=== PATIENT | male | born 1950 | race Caucasian/White ===

== ENCOUNTER → 2019-05-24 16:07 | Outpatient (BNVA) | payer MEDICARE, OTHER, SELFPAY | PROVIDERS: Family Provider Nurse Practitioner Family; PCP Nurse Practitioner Family; Visit Provider Emergency Medicine | DX: R39.9 Unspecified symptoms and signs involving the genitourinary system (principal); R33.8 Other retention of urine; R31.9 Hematuria, unspecified | CPT/HCPCS: 81003 ==

== ENCOUNTER 2019-06-02 18:14 | Emergency (ER) | payer MEDICARE, OTHER, SELFPAY ==
[2019-06-02] VITALS (14 sets, daily range): BP systolic 115–159; BP diastolic 67–91; PULSE 82–106; RESP 17–26; TEMP 38.1; O2SAT 92–98; BMI 40.3
--- NOTE | 2019-06-02 18:30 | XR_ITS ---
WS: [id number] CHEST XRAY TECHNIQUE: Portable chest. CLINICAL INFORMATION: dyspnea COMPARISON: None. FINDINGS: Heart: Cardiomegaly. Tortuous aorta. Lungs: Moderate chronic emphysematous changes. No acute pulmonary infiltrates. No focal pneumonia. Bones: Mild thoracic curve convex right. XR/XR chest 1V portable [id number] IMPRESSION: No acute chest findings
--- NOTE | 2019-06-02 18:30 | ED_ITS ---
Entered by Ermelinda Campuzano, acting as scribe for Wale Hernandez DO Documented by User: Wale Hernandez DO 06/02/19 18:44 HPI - SOB/Dyspnea General: Chief Complaint: Shortness of Breath/Dyspnea Stated Complaint: poss blood clot/sent from [facility] Time Seen by Provider: 06/02/19 18:28 Source: patient and family Mode of arrival: ambulatory Limitations: no limitations History of Present Illness: HPI Narrative: 68 yo male presents with increased shortness of breath. pt states he was sent to the ED from [facility] for a possible blood clot. pt denies any other symptoms at this time. MD elicited complaint: shortness of breath Onset (ago): day(s) (today) Timing: constant and progressively worsening Severity: moderate Exacerbating factors: exertion and movement Relieving factors: nothing Associated symptoms: Reports no associated symptoms Treatment prior to arrival: other (pt was sent from urgent care in [facility] for a possible blood clot) Related Data: Home oxygen amount: none Review of Systems General: Reports: 10 or more systems reviewed and unremarkable except in HPI and below Card: Reports: leg pain with exertion Resp: Reports: shortness of breath and wheezing PFSH ED PFSH: Social History Smoking and tobacco status: never smoked Alcohol intake: current Alcohol intake frequency: few times a week Alcohol type: wine Desire information about alcohol rehabilitation?: No History of recent travel: No Current gender identity: Male Physical Exam Const: COMMON NORMALS: no apparent distress, average body habitus, oriented x3, no limitations, healthy appearing, alert and well nourished HENMT: COMMON NORMALS: normocephalic, head/scalp atraumatic, hearing grossly normal bilaterally, external ears normal, EAC's normal, TM's normal bilaterally, external nose normal, nasal mucous membranes and turbinates normal, moist oral mucous membranes, oropharynx normal, dentition normal and gingiva normal HEAD & SCALP: normocephalic and atraumatic NOSE: external nose normal and nasal mucous membranes and turbinates normal EXTERNAL EAR: Yes external ears normal EXTERNAL AUDITORY CANAL: EAC's normal TYMPANIC MEMBRANE: TM's normal bilaterally Eye: COMMON NORMALS: PERRL, EOMs intact bilaterally, conjunctivae normal, no scleral icterus, no papilledema, normal visual holland by confrontation and fundi normal bilaterally CONJUNCTIVA: Yes conjunctivae normal PUPIL: Yes PERRL DIRECT OPHTHALMOSCOPY: Yes no papilledema and Yes fundi normal bilaterally Neck/C-Spine: COMMON NORMALS: full ROM, no lymphadenopathy, supple, no meningeal signs, no JVD, thyroid normal and no carotid bruits THYROID: thyroid normal Chest: COMMONS NORMALS: inspection of chest normal and palpation of chest normal Resp: AUSCULTATION: wheezes and diminished lung sounds Cardio: COMMON NORMALS: no JVD, regular rate, regular rhythm, S1 normal heart sound, S2 normal heart sound, no gallops, no clicks, no murmurs, no rub and peripheral pulses 2+ throughout RATE: regular rate RHYTHM: regular rhythm HEART SOUNDS: S1 normal and S2 normal PERIPHERAL PULSES: pulses 2+ throughout GI: COMMON NORMALS: normal to inspection, nondistended, normoactive bowel sounds, soft to palpation, non-tender, no hepatosplenomegaly, no masses and no bruits PALPATION: Yes soft and Yes no hepatosplenomegaly : COMMON NORMALS: Yes no CVA tenderness BLADDER/KIDNEY EXAM: Yes no CVA tenderness Back/Pelvis: COMMON NORMALS: no CVA tenderness, thoracic and lumbar spine normal to inspection, no thoracic nor lumbar tenderness, thoraco-lumbar ROM normal and straight leg raise negative bilaterally Extremity: COMMON NORMALS: normal to inspection, full ROM, normal capillary refill, no joint enlargement, no clubbing, cyanosis or edema, no calf tenderness and no pedal edema Neuro: COMMON NORMALS: oriented x3 SENSORIUM/ORIENTATION: Yes alert MENINGEAL SIGNS: Yes no meningeal signs Skin: COMMON NORMALS: no rashes or lesions noted, no wounds, skin turgor normal, no jaundice, no petechiae and no mottling GENERAL SKIN EXAM: no rashes or lesions noted and turgor normal Course Vital Signs: Vital signs: Vital Signs Temperature 100.1 F H 06/03/19 02:27 Pulse Rate 104 H 06/03/19 02:27 Respiratory Rate 28 H 06/03/19 02:27 Blood Pressure 168/87 06/03/19 02:27 Pulse Oximetry 94 06/03/19 02:27 MDM - SOB/Dyspnea Lab Data: Labs: Lab Results 0206/02/19 06/02/19 Range/Units 18:30 18:30 18:30 WBC 19.7 H (4.0-10.0) 10^3/ uL RBC 4.38 (4.1-5.3) 10^6/u L Hgb 13.1 (11.7-16.6) g/dL Hct 39.0 L (42.0-52.0) % MCV 89.0 (80-94) fL MCH 29.9 (28.0-34.0) pg MCHC 33.6 (30.0-36.0) g/dL RDW 13.5 (12.1-15.1) % Plt Count 262 (130-400) 10^3/c mm MPV 9.6 (7.4-10.4) fL Neut % (Auto) 83.3 % Lymph % (Auto) 7.9 % Swisher % (Auto) 7.6 % Eos % (Auto) 0.2 % Baso % (Auto) 0.2 % Neut # (Auto) 16.4 H (1.8-7.7) 10^3/u L Lymph # (Auto) 1.6 (0.8-4.8) 10^3/u L Swisher # (Auto) 1.5 H (0.2-0.9) 10^3/u L Eos # (Auto) 0.0 (0.0-0.8) 10^3/u L Baso # (Auto) 0.0 (0.0-0.1) 10^3/u L Nucleated RBC % (a uto) 0 % Nucleated RBCs # 0.0 /100WBC Specimen Type Sample Site ABG pH (7.35-7.45) ABG pCO2 (35-45) mmHg ABG pO2 (80.0-100.0) mmH g ABG HCO3 (22-26) mmol/L ABG Base Excess (-2.0-2.0) mmol/ L Lex Test Hematocrit (42-52) % Hgb O2 Saturation (95-100) % Carboxyhemoglobin (0.4-20.1) %THgb Methemoglobin (0.4-1.5) % Total Hemoglobin (14-18) g/dL O2 Delivery Device FiO2 % Spray I Painter ID Sodium 134 L (136-145) mmol/L Potassium 3.2 L (3.5-5.1) mmol/L Chloride 97 L (98-107) mmol/L Carbon Dioxide 22 (22-29) mmol/L Anion Gap 18.2 (5-19) BUN 28 H (8-23) mg/dL Creatinine 1.5 H (0.7-1.2) mg/dL GFR Calculation 46.5 L (90-130) mL/min Glucose 135 H (65-115) mg/dL Lactic Acid (0.5-2.2) mmol/L Calcium 9.0 (8.5-10.5) mg/dL Magnesium (1.7-2.3) mg/dL Total Bilirubin 0.8 (0.15-1.2) mg/dL AST 33 (0-40) U/L ALT 43 H (0-41) U/L Alkaline Phosphata se 59 (40-130) IU/L Troponin I 6 Hour (0-15) ng/mL Troponin I Hi Sens Del (0-12) ng/L Troponin T Baselin e 21 H (0-15) ng/mL Troponin T 120 Min [place] (0-15) ng/mL Delta Troponin T (0-10) ABS# NT-Pro-B Natriuret Pep 524 H (0-125) pg/mL Total Protein 7.0 (6.6-8.7) g/dL Albumin 3.3 L (3.5-5.2) g/dL Globulin 3.7 (1.3-4.6) g/dL Urine Color (Yellow) Urine Appearance (CLEAR) Urine pH (5-7) Ur Specific Gravit y (1.005-1.030) Urine Protein (Negative) Urine Glucose (UA) (Normal) Urine Ketones (Negative) Urine Blood (Negative) Urine Nitrate (Negative) Urine Bilirubin (NEGATIVE) Urine Urobilinogen (Negative) mg/dL Ur Leukocyte Tania ase (Negative) Urine RBC (0-2) /hpf Urine WBC (0-5) /hpf Ur Squamous Epith Cells (0-5) Amorphous Sediment Urine Bacteria (NONE) Urine Mucus Influenza Type A A g (Negative) POC Influenza B Ag (Negative) 06/02/19 06/02/19 06/02/19 Range/Units 18:30 18:30 18:30 WBC (4.0-10.0) 10^3/ uL RBC (4.1-5.3) 10^6/u L Hgb (11.7-16.6) g/dL Hct (42.0-52.0) % MCV (80-94) fL MCH (28.0-34.0) pg MCHC (30.0-36.0) g/dL RDW (12.1-15.1) % Plt Count (130-400) 10^3/c mm MPV (7.4-10.4) fL Neut % (Auto) % Lymph % (Auto) % Swisher % (Auto) % Eos % (Auto) % Baso % (Auto) % Neut # (Auto) (1.8-7.7) 10^3/u L Lymph # (Auto) (0.8-4.8) 10^3/u L Swisher # (Auto) (0.2-0.9) 10^3/u L Eos # (Auto) (0.0-0.8) 10^3/u L Baso # (Auto) (0.0-0.1) 10^3/u L Nucleated RBC % (a uto) % Nucleated RBCs # /100WBC Specimen Type Sample Site ABG pH (7.35-7.45) ABG pCO2 (35-45) mmHg ABG pO2 (80.0-100.0) mmH g ABG HCO3 (22-26) mmol/L ABG Base Excess (-2.0-2.0) mmol/ L Lex Test Hematocrit (42-52) % Hgb O2 Saturation (95-100) % Carboxyhemoglobin (0.4-20.1) %THgb Methemoglobin (0.4-1.5) % Total Hemoglobin (14-18) g/dL O2 Delivery Device FiO2 % Spray I Painter ID Sodium (136-145) mmol/L Potassium (3.5-5.1) mmol/L Chloride (98-107) mmol/L Carbon Dioxide (22-29) mmol/L Anion Gap (5-19) BUN (8-23) mg/dL Creatinine (0.7-1.2) mg/dL GFR Calculation (90-130) mL/min Glucose (65-115) mg/dL Lactic Acid 1.2 (0.5-2.2) mmol/L Calcium (8.5-10.5) mg/dL Magnesium 1.9 (1.7-2.3) mg/dL Total Bilirubin (0.15-1.2) mg/dL AST (0-40) U/L ALT (0-41) U/L Alkaline Phosphata se (40-130) IU/L Troponin I 6 Hour (0-15) ng/mL Troponin I Hi Sens Del (0-12) ng/L Troponin T Baselin e (0-15) ng/mL Troponin T 120 Min [place] (0-15) ng/mL Delta Troponin T (0-10) ABS# NT-Pro-B Natriuret Pep (0-125) pg/mL Total Protein (6.6-8.7) g/dL Albumin (3.5-5.2) g/dL Globulin (1.3-4.6) g/dL Urine Color Haley (Yellow) Urine Appearance Clear (CLEAR) Urine pH 5 (5-7) Ur Specific Gravit y 1.020 (1.005-1.030) Urine Protein 2+ H (Negative) Urine Glucose (UA) Norm (Normal) Urine Ketones Negative (Negative) Urine Blood 3+ H (Negative) Urine Nitrate Negative (Negative) Urine Bilirubin Neg (NEGATIVE) Urine Urobilinogen Norm (Negative) mg/dL Ur Leukocyte Tania ase Trace H (Negative) Urine RBC 5-10 H (0-2) /hpf Urine WBC 15-25 H (0-5) /hpf Ur Squamous Epith Cells None (0-5) Amorphous Sediment 2+ Urine Bacteria 1+ H (NONE) Urine Mucus Trace Influenza Type A A g (Negative) POC Influenza B Ag (Negative) 06/02/19 06/02/19 06/02/19 Range/Units 18:30 18:46 19:45 WBC (4.0-10.0) 10^3/ uL RBC (4.1-5.3) 10^6/u L Hgb (11.7-16.6) g/dL Hct (42.0-52.0) % MCV (80-94) fL MCH (28.0-34.0) pg MCHC (30.0-36.0) g/dL RDW (12.1-15.1) % Plt Count (130-400) 10^3/c mm MPV (7.4-10.4) fL Neut % (Auto) % Lymph % (Auto) % Swisher % (Auto) % Eos % (Auto) % Baso % (Auto) % Neut # (Auto) (1.8-7.7) 10^3/u L Lymph # (Auto) (0.8-4.8) 10^3/u L Swisher # (Auto) (0.2-0.9) 10^3/u L Eos # (Auto) (0.0-0.8) 10^3/u L Baso # (Auto) (0.0-0.1) 10^3/u L Nucleated RBC % (a uto) % Nucleated RBCs # /100WBC Specimen Type Arterial Sample Site Radial, right ABG pH 7.52 H (7.35-7.45) ABG pCO2 28.7 L (35-45) mmHg ABG pO2 63.6 L (80.0-100.0) mmH g ABG HCO3 23.6 (22-26) mmol/L ABG Base Excess 2.0 (-2.0-2.0) mmol/ L Lex Test Pos Hematocrit 48.4 (42-52) % Hgb O2 Saturation 91.9 L (95-100) % Carboxyhemoglobin 0.3 L (0.4-20.1) %THgb Methemoglobin 0.7 (0.4-1.5) % Total Hemoglobin 15.8 (14-18) g/dL O2 Delivery Device None FiO2 21.0 % Spray I Painter ID [email or web address] Sodium (136-145) mmol/L Potassium (3.5-5.1) mmol/L Chloride (98-107) mmol/L Carbon Dioxide (22-29) mmol/L Anion Gap (5-19) BUN (8-23) mg/dL Creatinine (0.7-1.2) mg/dL GFR Calculation (90-130) mL/min Glucose (65-115) mg/dL Lactic Acid (0.5-2.2) mmol/L Calcium (8.5-10.5) mg/dL Magnesium (1.7-2.3) mg/dL Total Bilirubin (0.15-1.2) mg/dL AST (0-40) U/L ALT (0-41) U/L Alkaline Phosphata se (40-130) IU/L Troponin I 6 Hour (0-15) ng/mL Troponin I Hi Sens Del (0-12) ng/L Troponin T Baselin e (0-15) ng/mL Troponin T 120 Min [place] (0-15) ng/mL Delta Troponin T (0-10) ABS# NT-Pro-B Natriuret Pep 555 H (0-125) pg/mL Total Protein (6.6-8.7) g/dL Albumin (3.5-5.2) g/dL Globulin (1.3-4.6) g/dL Urine Color (Yellow) Urine Appearance (CLEAR) Urine pH (5-7) Ur Specific Gravit y (1.005-1.030) Urine Protein (Negative) Urine Glucose (UA) (Normal) Urine Ketones (Negative) Urine Blood (Negative) Urine Nitrate (Negative) Urine Bilirubin (NEGATIVE) Urine Urobilinogen (Negative) mg/dL Ur Leukocyte Tania ase (Negative) Urine RBC (0-2) /hpf Urine WBC (0-5) /hpf Ur Squamous Epith Cells (0-5) Amorphous Sediment Urine Bacteria (NONE) Urine Mucus Influenza Type A A g Negative (Negative) POC Influenza B Ag Negative (Negative) 06/02/19 06/03/19 Range/Units 20:56 00:14 WBC (4.0-10.0) 10^3/ uL RBC (4.1-5.3) 10^6/u L Hgb (11.7-16.6) g/dL Hct (42.0-52.0) % MCV (80-94) fL MCH (28.0-34.0) pg MCHC (30.0-36.0) g/dL RDW (12.1-15.1) % Plt Count (130-400) 10^3/c mm MPV (7.4-10.4) fL Neut % (Auto) % Lymph % (Auto) % Swisher % (Auto) % Eos % (Auto) % Baso % (Auto) % Neut # (Auto) (1.8-7.7) 10^3/u L Lymph # (Auto) (0.8-4.8) 10^3/u L Swisher # (Auto) (0.2-0.9) 10^3/u L Eos # (Auto) (0.0-0.8) 10^3/u L Baso # (Auto) (0.0-0.1) 10^3/u L Nucleated RBC % (a uto) % Nucleated RBCs # /100WBC Specimen Type Sample Site ABG pH (7.35-7.45) ABG pCO2 (35-45) mmHg ABG pO2 (80.0-100.0) mmH g ABG HCO3 (22-26) mmol/L ABG Base Excess (-2.0-2.0) mmol/ L Elx Test Hematocrit (42-52) % Hgb O2 Saturation (95-100) % Carboxyhemoglobin (0.4-20.1) %THgb Methemoglobin (0.4-1.5) % Total Hemoglobin (14-18) g/dL O2 Delivery Device FiO2 % Spray I Painter ID Sodium (136-145) mmol/L Potassium (3.5-5.1) mmol/L Chloride (98-107) mmol/L Carbon Dioxide (22-29) mmol/L Anion Gap (5-19) BUN (8-23) mg/dL Creatinine (0.7-1.2) mg/dL GFR Calculation (90-130) mL/min Glucose (65-115) mg/dL Lactic Acid (0.5-2.2) mmol/L Calcium (8.5-10.5) mg/dL Magnesium (1.7-2.3) mg/dL Total Bilirubin (0.15-1.2) mg/dL AST (0-40) U/L ALT (0-41) U/L Alkaline Phosphata se (40-130) IU/L Troponin I 6 Hour 17.17 H (0-15) ng/mL Troponin I Hi Sens Del -3.83 L (0-12) ng/L Troponin T Baselin e (0-15) ng/mL Troponin T 120 Min [place] 20.03 H (0-15) ng/mL Delta Troponin T -0.97 L (0-10) ABS# NT-Pro-B Natriuret Pep (0-125) pg/mL Total Protein (6.6-8.7) g/dL Albumin (3.5-5.2) g/dL Globulin (1.3-4.6) g/dL Urine Color (Yellow) Urine Appearance (CLEAR) Urine pH (5-7) Ur Specific Gravit y (1.005-1.030) Urine Protein (Negative) Urine Glucose (UA) (Normal) Urine Ketones (Negative) Urine Blood (Negative) Urine Nitrate (Negative) Urine Bilirubin (NEGATIVE) Urine Urobilinogen (Negative) mg/dL Ur Leukocyte Tania ase (Negative) Urine RBC (0-2) /hpf Urine WBC (0-5) /hpf Ur Squamous Epith Cells (0-5) Amorphous Sediment Urine Bacteria (NONE) Urine Mucus Influenza Type A A g (Negative) POC Influenza B Ag (Negative) Discharge Plan Discharge Patient Disposition: Xfer Short-Term Hosp Clinical Impression: Acute pyelonephritis, Postprocedural retroperitoneal abscess Pulmonary emboli Qualifiers: Pulmonary embolism type: unspecified Chronicity: acute Acute cor pulmonale presence: without acute cor pulmonale Qualified Code(s): I26.99 - Other pulmonary embolism without acute cor pulmonale Condition: Stable Referrals: Luke Chamorro FNP [Family Provider] - Discharge Date/Time: 06/03/19 02:29 Sign Out Sign Out Data: Patient Sign Out occurred on 06/02/19 at 19:17. Patient's care was discussed, and care was transferred from to Carmel Damon. Coding Level of Care Code ED Title Officer for Chg Fwd Exam Comprehensive Documented by User: Carmel Damon 06/03/19 02:32 HPI - SOB/Dyspnea General: Chief Complaint: Shortness of Breath/Dyspnea Stated Complaint: poss blood clot/sent from [facility] Time Seen by Provider: 06/02/19 18:28 PFSH ED PFSH: Social History Smoking and tobacco status: never smoked Alcohol intake: current Alcohol intake frequency: few times a week Alcohol type: wine Desire information about alcohol rehabilitation?: No History of recent travel: No Current gender identity: Male Course Vital Signs: Vital signs: Vital Signs Temperature 100.1 F H 06/03/19 02:27 Pulse Rate 104 H 06/03/19 02:27 Respiratory Rate 28 H 06/03/19 02:27 Blood Pressure 168/87 06/03/19 02:27 Pulse Oximetry 94 06/03/19 02:27 MDM - SOB/Dyspnea MDM Narrative: Medical decision making narrative: 1800 -care assumed by me Dr. Damon from Dr. Segundo at change of shift. Upon my history from patient he states he has been sick with flulike symptoms of shortness of breath, cough, fever and night sweats with chills since May 22. Patient received a cystoscopy and ureteral stent at that time for a kidney stone by Dr. Tyshawn Gaspar out of [facility]. Patient had 5 days of prophylactic antibiotics at the time but went home and stated secondary to the pain he did not want to get up or move or do anything. He was taken off of his Pradaxa secondary to concern of bleeding with a stent in place. Patient states he was very sedentary at home and did not get up to do much. Today he had his stent pulled but then went to his nurse practitioner's office and [place] and they had the concern of a PE so they sent him here to be evaluated. Currently he states he has mild shortness of breath but still feels achy and like he has the flu. Transfer -patient CT scan shows multiple bilateral PEs but there is no clinical or laboratory evidence of right heart strain. The patient is not hypoxic and on room air oxygen he ranges 92 to 95%. He is not tachycardic, and he is not hypotensive. His BNP is only minutely elevated and his troponins are not trending up. I placed him on heparin as his CT scan also shows a pyelonephritis and possible ureteral abscess. This will likely need intervened on and heparin will be easy to stop and then restart after the procedure. I reviewed the case in full with Dr. Hernandez and Robert but they agree this will likely need a interventional radiologist to drain this and ours do not perform this procedure here. I then contacted [facility] in [place] and they are on full diversion at this time. I contacted [facility] and discussed the case with Dr. Vargas and he will accept the patient in transfer. Lab Data: Labs: Lab Results 06/02/19 06/02/19 06/02/19 Range/Units 18:30 18:30 18:30 WBC 19.7 H (4.0-10.0) 10^3/ uL RBC 4.38 (4.1-5.3) 10^6/u L Hgb 13.1 (11.7-16.6) g/dL Hct 39.0 L (42.0-52.0) % MCV 89.0 (80-94) fL MCH 29.9 (28.0-34.0) pg MCHC 33.6 (30.0-36.0) g/dL RDW 13.5 (12.1-15.1) % Plt Count 262 (130-400) 10^3/c mm MPV 9.6 (7.4-10.4) fL Neut % (Auto) 83.3 % Lymph % (Auto) 7.9 % Swisher % (Auto) 7.6 % Eos % (Auto) 0.2 % Baso % (Auto) 0.2 % Neut # (Auto) 16.4 H (1.8-7.7) 10^3/u L Lymph # (Auto) 1.6 (0.8-4.8) 10^3/u L Swisher # (Auto) 1.5 H (0.2-0.9) 10^3/u L Eos # (Auto) 0.0 (0.0-0.8) 10^3/u L Baso # (Auto) 0.0 (0.0-0.1) 10^3/u L Nucleated RBC % (a uto) 0 % Nucleated RBCs # 0.0 /100WBC Specimen Type Sample Site ABG pH (7.35-7.45) ABG pCO2 (35-45) mmHg ABG pO2 (80.0-100.0) mmH g ABG HCO3 (22-26) mmol/L ABG Base Excess (-2.0-2.0) mmol/ L Lex Test Hematocrit (42-52) % Hgb O2 Saturation (95-100) % Carboxyhemoglobin (0.4-20.1) %THgb Methemoglobin (0.4-1.5) % Total Hemoglobin (14-18) g/dL O2 Delivery Device FiO2 % Spray I Painter ID Sodium 134 L (136-145) mmol/L Potassium 3.2 L (3.5-5.1) mmol/L Chloride 97 L (98-107) mmol/L Carbon Dioxide 22 (22-29) mmol/L Anion Gap 18.2 (5-19) BUN 28 H (8-23) mg/dL Creatinine 1.5 H (0.7-1.2) mg/dL GFR Calculation 46.5 L (90-130) mL/min Glucose 135 H (65-115) mg/dL Lactic Acid (0.5-2.2) mmol/L Calcium 9.0 (8.5-10.5) mg/dL Magnesium (1.7-2.3) mg/dL Total Bilirubin 0.8 (0.15-1.2) mg/dL AST 33 (0-40) U/L ALT 43 H (0-41) U/L Alkaline Phosphata se 59 (40-130) IU/L Troponin I 6 Hour (0-15) ng/mL Troponin I Hi Sens Del (0-12) ng/L Troponin T Baselin e 21 H (0-15) ng/mL Troponin T 120 Min [place] (0-15) ng/mL Delta Troponin T (0-10) ABS# NT-Pro-B Natriuret Pep 524 H (0-125) pg/mL Total Protein 7.0 (6.6-8.7) g/dL Albumin 3.3 L (3.5-5.2) g/dL Globulin 3.7 (1.3-4.6) g/dL Urine Color (Yellow) Urine Appearance (CLEAR) Urine pH (5-7) Ur Specific Gravit y (1.005-1.030) Urine Protein (Negative) Urine Glucose (UA) (Normal) Urine Ketones (Negative) Urine Blood (Negative) Urine Nitrate (Negative) Urine Bilirubin (NEGATIVE) Urine Urobilinogen (Negative) mg/dL Ur Leukocyte Tania ase (Negative) Urine RBC (0-2) /hpf Urine WBC (0-5) /hpf Ur Squamous Epith Cells (0-5) Amorphous Sediment Urine Bacteria (NONE) Urine Mucus Influenza Type A A g (Negative) POC Influenza B Ag (Negative) 06/02/19 06/02/19 06/02/19 Range/Units 18:30 18:30 18:30 WBC (4.0-10.0) 10^3/ uL RBC (4.1-5.3) 10^6/u L Hgb (11.7-16.6) g/dL Hct (42.0-52.0) % MCV (80-94) fL MCH (28.0-34.0) pg MCHC (30.0-36.0) g/dL RDW (12.1-15.1) % Plt Count (130-400) 10^3/c mm MPV (7.4-10.4) fL Neut % (Auto) % Lymph % (Auto) % Swisher % (Auto) % Eos % (Auto) % Baso % (Auto) % Neut # (Auto) (1.8-7.7) 10^3/u L Lymph # (Auto) (0.8-4.8) 10^3/u L Swisher # (Auto) (0.2-0.9) 10^3/u L Eos # (Auto) (0.0-0.8) 10^3/u L Baso # (Auto) (0.0-0.1) 10^3/u L Nucleated RBC % (a uto) % Nucleated RBCs # /100WBC Specimen Type Sample Site ABG pH (7.35-7.45) ABG pCO2 (35-45) mmHg ABG pO2 (80.0-100.0) mmH g ABG HCO3 (22-26) mmol/L ABG Base Excess (-2.0-2.0) mmol/ L Lex Test Hematocrit (42-52) % Hgb O2 Saturation (95-100) % Carboxyhemoglobin (0.4-20.1) %THgb Methemoglobin (0.4-1.5) % Total Hemoglobin (14-18) g/dL O2 Delivery Device FiO2 % Spray I Painter ID Sodium (136-145) mmol/L Potassium (3.5-5.1) mmol/L Chloride (98-107) mmol/L Carbon Dioxide (22-29) mmol/L Anion Gap (5-19) BUN (8-23) mg/dL Creatinine (0.7-1.2) mg/dL GFR Calculation (90-130) mL/min Glucose (65-115) mg/dL Lactic Acid 1.2 (0.5-2.2) mmol/L Calcium (8.5-10.5) mg/dL Magnesium 1.9 (1.7-2.3) mg/dL Total Bilirubin (0.15-1.2) mg/dL AST (0-40) U/L ALT (0-41) U/L Alkaline Phosphata se (40-130) IU/L Troponin I 6 Hour (0-15) ng/mL Troponin I Hi Sens Del (0-12) ng/L Troponin T Baselin e (0-15) ng/mL Troponin T 120 Min [place] (0-15) ng/mL Delta Troponin T (0-10) ABS# NT-Pro-B Natriuret Pep (0-125) pg/mL Total Protein (6.6-8.7) g/dL Albumin (3.5-5.2) g/dL Globulin (1.3-4.6) g/dL Urine Color Haley (Yellow) Urine Appearance Clear (CLEAR) Urine pH 5 (5-7) Ur Specific Gravit y 1.020 (1.005-1.030) Urine Protein 2+ H (Negative) Urine Glucose (UA) Norm (Normal) Urine Ketones Negative (Negative) Urine Blood 3+ H (Negative) Urine Nitrate Negative (Negative) Urine Bilirubin Neg (NEGATIVE) Urine Urobilinogen Norm (Negative) mg/dL Ur Leukocyte Tania ase Trace H (Negative) Urine RBC 5-10 H (0-2) /hpf Urine WBC 15-25 H (0-5) /hpf Ur Squamous Epith Cells None (0-5) Amorphous Sediment 2+ Urine Bacteria 1+ H (NONE) Urine Mucus Trace Influenza Type A A g (Negative) POC Influenza B Ag (Negative) 06/02/19 06/02/19 06/02/19 Range/Units 18:30 18:46 19:45 WBC (4.0-10.0) 10^3/ uL RBC (4.1-5.3) 10^6/u L Hgb (11.7-16.6) g/dL Hct (42.0-52.0) % MCV (80-94) fL MCH (28.0-34.0) pg MCHC (30.0-36.0) g/dL RDW (12.1-15.1) % Plt Count (130-400) 10^3/c mm MPV (7.4-10.4) fL Neut % (Auto) % Lymph % (Auto) % Swisher % (Auto) % Eos % (Auto) % Baso % (Auto) % Neut # (Auto) (1.8-7.7) 10^3/u L Lymph # (Auto) (0.8-4.8) 10^3/u L Swisher # (Auto) (0.2-0.9) 10^3/u L Eos # (Auto) (0.0-0.8) 10^3/u L Baso # (Auto) (0.0-0.1) 10^3/u L Nucleated RBC % (a uto) % Nucleated RBCs # /100WBC Specimen Type Arterial Sample Site Radial, right ABG pH 7.52 H (7.35-7.45) ABG pCO2 28.7 L (35-45) mmHg ABG pO2 63.6 L (80.0-100.0) mmH g ABG HCO3 23.6 (22-26) mmol/L ABG Base Excess 2.0 (-2.0-2.0) mmol/ L Lex Test Pos Hematocrit 48.4 (42-52) % Hgb O2 Saturation 91.9 L (95-100) % Carboxyhemoglobin 0.3 L (0.4-20.1) %THgb Methemoglobin 0.7 (0.4-1.5) % Total Hemoglobin 15.8 (14-18) g/dL O2 Delivery Device None FiO2 21.0 % Spray I Painter ID [email or web address] Sodium (136-145) mmol/L Potassium (3.5-5.1) mmol/L Chloride (98-107) mmol/L Carbon Dioxide (22-29) mmol/L Anion Gap (5-19) BUN (8-23) mg/dL Creatinine (0.7-1.2) mg/dL GFR Calculation (90-130) mL/min Glucose (65-115) mg/dL Lactic Acid (0.5-2.2) mmol/L Calcium (8.5-10.5) mg/dL Magnesium (1.7-2.3) mg/dL Total Bilirubin (0.15-1.2) mg/dL AST (0-40) U/L ALT (0-41) U/L Alkaline Phosphata se (40-130) IU/L Troponin I 6 Hour (0-15) ng/mL Troponin I Hi Sens Del (0-12) ng/L Troponin T Baselin e (0-15) ng/mL Troponin T 120 Min [place] (0-15) ng/mL Delta Troponin T (0-10) ABS# NT-Pro-B Natriuret Pep 555 H (0-125) pg/mL Total Protein (6.6-8.7) g/dL Albumin (3.5-5.2) g/dL Globulin (1.3-4.6) g/dL Urine Color (Yellow) Urine Appearance (CLEAR) Urine pH (5-7) Ur Specific Gravit y (1.005-1.030) Urine Protein (Negative) Urine Glucose (UA) (Normal) Urine Ketones (Negative) Urine Blood (Negative) Urine Nitrate (Negative) Urine Bilirubin (NEGATIVE) Urine Urobilinogen (Negative) mg/dL Ur Leukocyte Tania ase (Negative) Urine RBC (0-2) /hpf Urine WBC (0-5) /hpf Ur Squamous Epith Cells (0-5) Amorphous Sediment Urine Bacteria (NONE) Urine Mucus Influenza Type A A g Negative (Negative) POC Influenza B Ag Negative (Negative) 06/02/19 06/03/19 Range/Units 20:56 00:14 WBC (4.0-10.0) 10^3/ uL RBC (4.1-5.3) 10^6/u L Hgb (11.7-16.6) g/dL Hct (42.0-52.0) % MCV (80-94) fL MCH (28.0-34.0) pg MCHC (30.0-36.0) g/dL RDW (12.1-15.1) % Plt Count (130-400) 10^3/c mm MPV (7.4-10.4) fL Neut % (Auto) % Lymph % (Auto) % Swisher % (Auto) % Eos % (Auto) % Baso % (Auto) % Neut # (Auto) (1.8-7.7) 10^3/u L Lymph # (Auto) (0.8-4.8) 10^3/u L Swisher # (Auto) (0.2-0.9) 10^3/u L Eos # (Auto) (0.0-0.8) 10^3/u L Baso # (Auto) (0.0-0.1) 10^3/u L Nucleated RBC % (a uto) % Nucleated RBCs # /100WBC Specimen Type Sample Site ABG pH (7.35-7.45) ABG pCO2 (35-45) mmHg ABG pO2 (80.0-100.0) mmH g ABG HCO3 (22-26) mmol/L ABG Base Excess (-2.0-2.0) mmol/ L Lex Test Hematocrit (42-52) % Hgb O2 Saturation (95-100) % Carboxyhemoglobin (0.4-20.1) %THgb Methemoglobin (0.4-1.5) % Total Hemoglobin (14-18) g/dL O2 Delivery Device FiO2 % Spray I Painter ID Sodium (136-145) mmol/L Potassium (3.5-5.1) mmol/L Chloride (98-107) mmol/L Carbon Dioxide (22-29) mmol/L Anion Gap (5-19) BUN (8-23) mg/dL Creatinine (0.7-1.2) mg/dL GFR Calculation (90-130) mL/min Glucose (65-115) mg/dL Lactic Acid (0.5-2.2) mmol/L Calcium (8.5-10.5) mg/dL Magnesium (1.7-2.3) mg/dL Total Bilirubin (0.15-1.2) mg/dL AST (0-40) U/L ALT (0-41) U/L Alkaline Phosphata se (40-130) IU/L Troponin I 6 Hour 17.17 H (0-15) ng/mL Troponin I Hi Sens Del -3.83 L (0-12) ng/L Troponin T Baselin e (0-15) ng/mL Troponin T 120 Min [place] 20.03 H (0-15) ng/mL Delta Troponin T -0.97 L (0-10) ABS# NT-Pro-B Natriuret Pep (0-125) pg/mL Total Protein (6.6-8.7) g/dL Albumin (3.5-5.2) g/dL Globulin (1.3-4.6) g/dL Urine Color (Yellow) Urine Appearance (CLEAR) Urine pH (5-7) Ur Specific Gravit y (1.005-1.030) Urine Protein (Negative) Urine Glucose (UA) (Normal) Urine Ketones (Negative) Urine Blood (Negative) Urine Nitrate (Negative) Urine Bilirubin (NEGATIVE) Urine Urobilinogen (Negative) mg/dL Ur Leukocyte Tania ase (Negative) Urine RBC (0-2) /hpf Urine WBC (0-5) /hpf Ur Squamous Epith Cells (0-5) Amorphous Sediment Urine Bacteria (NONE) Urine Mucus Influenza Type A A g (Negative) POC Influenza B Ag (Negative) Imaging Data^: Other Imaging: Radiologist's impression: [place] [address] CT Scan Report Signed with Addenda Patient: Sanket Haji Unit #: [id number] : 1950 Age/Sex: 68 / M ADM Date: 06/02/19 Loc: ER Room/Bed: Attending Dr: Ordering Provider/Ordering MD: Carmel Damon DO Date of Service: 06/02/19 Procedure(s): CT angio chest w abd pel w con Accession Number(s): [id number] Report Number: [id number]/CT angio chest w abd pel w con These findings were discussed with Dr Damon by Dr. Rios at 9:42 p.m. central time. Radiation Dose CTDIVOL = (mGy): DLP = 2211.1 2211.1 (mGy-cm) Addendum Dictated By: Mandeep Rios Addendum Signed By: Mandeep Rios Signed Date/Time: 06/02/19 2 145 Addendum Cosigned By: PROCEDURE INFORMATION: Exam: CT Angiography Chest With Contrast Exam date and time: 06/02/2019 8:19 PM Age: 68 years old Clinical indication: Abdominal tenderness; Shortness of breath and other: Elevated d-dimer; Prior surgery; Surgery type: Left shoulder; Additional info: Sob/positive d-dimer TECHNIQUE: Imaging protocol: Computed tomographic angiography of the chest with intravenous contrast. 3D rendering: MIP and/or 3D reconstructed images were created by the technologist. Total DLP: 2211.1 mGy-cm Radiation optimization: All CT scans at this facility use at least one of these dose optimization techniques: automated exposure control; mA and/or kV adjustment per patient size (includes targeted exams where dose is matched to clinical indication); or iterative reconstruction. Contrast material: VISI 320; Contrast volume: 95 ml; Contrast route: IV; COMPARISON: CR XR chest 1V portable [id number] 06/02/2019 6:35 PM FINDINGS: Pulmonary arteries: There are multiple filling defects within the pulmonary artery branches of both lungs, right greater than left. Aorta: Unremarkable. No aortic aneurysm. No aortic dissection. Lungs: Mild subpleural atelectasis. Calcified granuloma in the left lower lobe. Pleural space: Unremarkable. No pneumothorax. No pleural effusion. Heart: No evidence for right heart strain. Lymph nodes: Unremarkable. No enlarged lymph nodes. Bones/joints: Old left rib fractures. Mild scoliosis. Soft tissues: Unremarkable. IMPRESSION: 1. Multiple pulmonary emboli within both lungs, right greater than left. PROCEDURE INFORMATION: Exam: CT Abdomen And Pelvis With Contrast Exam date and time: 06/02/2019 8:19 PM Age: 68 years old Clinical indication: Abdominal tenderness; Shortness of breath and other: Elevated d-dimer; Prior surgery; Surgery type: Left shoulder; Additional info: Sob/positive d-dimer TECHNIQUE: Imaging protocol: Computed tomography of the abdomen and pelvis with intravenous contrast. Total DLP: 2211.1 mGy-cm Radiation optimization: All CT scans at this facility use at least one of these dose optimization techniques: automated exposure control; mA and/or kV adjustment per patient size (includes targeted exams where dose is matched to clinical indication); or iterative reconstruction. Contrast material: VISI 320; Contrast volume: 95 ml; Contrast route: IV; COMPARISON: CR XR chest 1V portable [id number] 06/02/2019 6:35 PM FINDINGS: Liver: Normal. No mass. Gallbladder and bile ducts: Normal. No calcified stones. No ductal dilation. Pancreas: Normal. No ductal dilation. Spleen: Normal. No splenomegaly. Adrenals: Normal. No mass. Kidneys and ureters: Multiple bilateral renal cysts, the largest on the right measuring 9.1 cm. Mild left perinephric and periureteral stranding. Focal fluid collection with peripheral enhancement adjacent to the mid left ureter measuring 3.3 x 1.3 x 4.7 cm. No ureteral calculus. Mild left hydronephrosis. Nonobstructing 2-3 mm bilateral renal calculi. Stomach and bowel: Unremarkable. No obstruction. No mucosal thickening. Appendix: No evidence of appendicitis. Intraperitoneal space: Unremarkable. No free air. No significant fluid collection. Vasculature: Unremarkable. No abdominal aortic aneurysm. Lymph nodes: Unremarkable. No enlarged lymph nodes. Bladder: Unremarkable as visualized. Reproductive: Mildly enlarged prostate measuring 5.3 cm with peripheral calcifications and a central 1.5 cm low-density. Bones/joints: Degenerative lumbar spine. No compression fracture. Soft tissues: Unremarkable. CT/CT angio chest w abd pel w con IMPRESSION: 1. Left perinephric stranding and mild left hydronephrosis, without a visible ureteral calculus. This is suspicious for pyelonephritis. 2. 4.7 cm peripherally enhancing fluid collection adjacent to the mid left ureter is suspicious for a small retroperitoneal abscess. 3. Bilateral nonobstructing renal calculi. 4. Bilateral renal cysts. 4. Enlarged prostate with a 1.5 cm hypodense lesion centrally. An underlying neoplasm is not excluded. Radiation Dose CTDIVOL = (mGy): DLP = 2211.1 2211.1 (mGy-cm) Dictated By: Mandeep Rios Signed By: Mandeep Rios Signed Date/Time: 06/02/192125 DD/ 23 US: Radiologist's impression: Bilateral venous lower extremity venous Doppler, technologist interpretation -negative for DVT EKG Data^: EKG 1: Attestation: I personally reviewed and interpreted this EKG as follows: EKG Interpretation Date: 06/02/19 EKG interpretation time: 18:36 Interpretation: Sinus tachycardia with a ventricular rate of 109 beats a minute, right bundle branch block, left anterior fascicular block, nonspecific ST and T wave changes. EKG 2: Attestation: I personally reviewed and interpreted this EKG as follows: EKG Interpretation Date: 06/02/19 EKG interpretation time: 20:06 Interpretation: Normal sinus rhythm at 98 beats a minute. Left axis deviation, right bundle branch block, nonspecific ST-T wave changes, no blocks, normal intervals. Discharge Plan Discharge Patient Disposition: Xfer Short-Term Hosp Clinical Impression: Acute pyelonephritis, Postprocedural retroperitoneal abscess Pulmonary emboli Qualifiers: Pulmonary embolism type: unspecified Chronicity: acute Acute cor pulmonale presence: without acute cor pulmonale Qualified Code(s): I26.99 - Other pulmonary embolism without acute cor pulmonale Condition: Stable Referrals: Luke Chamorro FNP [Family Provider] - Discharge Date/Time: 06/03/19 02:29 Sign Out Sign Out Data: Patient Sign Out occurred on 06/02/19 at 19:17. Patient's care was discussed, and care was transferred from to Carmel Damon. Coding Level of Care Code ED Title Officer for Raeg Fwd Exam Comprehensive
--- NOTE | 2019-06-02 18:31 | ECG_ITS ---
Measurements Intervals [place] Rate: 109 P: 78 AK: 149 QRS: 1 QRSD: 144 T: 31 QT: 309 QTc: 417 SINUS TACHYCARDIA WITH OCCASIONAL SUPRAVENTRICULAR PREMATURE COMPLEXES INTRAVENTRICULAR CONDUCTION DELAY [130+ ms QRS DURATION] No previous ECG available for comparison Electronically Signed On 06-02-2019 19:47:10 BAKER PIE by Olge Alba M.D. [id number]
[2019-06-02 18:49] LABS: Basophils % 0.2 %; Eosinophils % 0.2 %; Hemoglobin 13.1 g/dL (11.7-16.6); Lymphocytes # 1.6 10^3/uL (0.8-4.8); Lymphocytes % 7.9 %; Mean Corpuscular HGB Conc 33.6 g/dL (30.0-36.0); Mean Corpuscular Hemoglobin 29.9 pg (28.0-34.0); Mean Platelet Volume 9.6 fL (7.4-10.4); Monocytes # 1.5 10^3/uL (0.2-0.9); Monocytes % 7.6 %; Neutrophils # 16.4 10^3/uL (1.8-7.7); Neutrophils % 83.3 %; Nucleated Red Blood Cells % 0 %; Platelet Count 262 10^3/cmm (130-400); Red Blood Count 4.38 10^6/uL (4.1-5.3); Red Cell Distribution Width 13.5 % (12.1-15.1); White Blood Count 19.7 10^3/uL (4.0-10.0)
--- NOTE | 2019-06-02 18:56 | USCV_ITS ---
Adithya Sanket Age: 68 Gender: M : 1950 Exam Date: 06/02/2019 19:12 Ordering Phys: Wale Hernandez DO Technologist: Adrianne Gant Exam Location: [facility] [place] Indication: pain HISTORY: Lower extremity pain. PROCEDURES: Venous duplex imaging was performed in bilateral lower extremities. The following venous structures were evaluated: common femoral vein, profunda vein, proximal portion of the greater saphenous vein, superficial femoral vein, and the popliteal vein. In addition, the posterior tibial and peroneal trunk were evaluated. Serial compression, augmentation maneuvers, and spectral Doppler flow evaluation were performed. FINDINGS: Normal 2-D Doppler and augmentation and compressibility throughout the lower extremity venous structures. Additional imaging through the proximal calf veins also reveals no thrombus. Limited evaluation of the greater saphenous vein is patent with no thrombus. CONCLUSIONS No DVT bilateral lower extremities. Dr. Estrellita Mittal DO (Electronically Signed) Final Date: 03 June 2019 08:03 S
[2019-06-02 19:08] LABS: Troponin(5th) Baseline 21 ng/mL (0-15)
[2019-06-02 19:17] LABS: Alanine Aminotransferase 43 U/L (0-41); Albumin Level 3.3 g/dL (3.5-5.2); Alkaline Phosphatase 59 IU/L (40-130); Anion Gap 18.2 (5-19); Aspartate Amino Transferase 33 U/L (0-40); Blood Urea Nitrogen 28 mg/dL (8-23); Carbon Dioxide 22 mmol/L (22-29); Chloride 97 mmol/L (98-107); Globulin 3.7 g/dL (1.3-4.6); Glomerular Filtration Rate 46.5 mL/min (90-130); Glucose 135 mg/dL (65-115); NT Pro B Type Natriuretic Pept 524 pg/mL (0-125); Potassium 3.2 mmol/L (3.5-5.1); Sodium 134 mmol/L (136-145); Total Bilirubin 0.8 mg/dL (0.15-1.2)
[2019-06-02] MEDS: acetaminophen 500 mg Tablet 1000 MG PO (19:43)
[2019-06-02 19:48] LABS: Influenza A by IFA Negative (Negative); Influenza B by IFA Negative (Negative)
[2019-06-02 19:51] LABS: ABG PCO2 28.7 mmHg (35-45); ABG PH Result 7.52 (7.35-7.45); Arterial Blood Gas Hematocrit 48.4 % (42-52); Blood Gas Allen Test Pos; Blood Gas Sample Site Radial, right; Blood Gas Sample Type Arterial; Carboxyhemoglobin 0.3 %THgb (0.4-20.1); HCO3 ABG 23.6 mmol/L (22-26); HGB O2 Sat 91.9 % (95-100); Methemoglobin 0.7 % (0.4-1.5); PO2 ABG 63.6 mmHg (80.0-100.0); Total Hemoglobin 15.8 g/dL (14-18)
[2019-06-02] MEDS: ipratropium-albuterol 3 mL Neb INHALATION (19:53)
[2019-06-02 19:55] LABS: Bilirubin Urine Neg (NEGATIVE); Blood Urine 3+ (Negative); Glucose Urine UA Norm (Normal); Ketones Urine Negative (Negative); Nitrate Urine Negative (Negative); Protein Urine 2+ (Negative); Urine Appearance Clear (CLEAR); Urine Color Amber (Yellow); Urobilinogen Urine Norm (Negative); pH Urine 5 (5-7)
[2019-06-02 19:56] LABS: Add Urine Microscopic? YES; Amorphous Sediment Urine 2+; Bacteria Urine 1+; Leukocyte Esterase Urine Trace (Negative); Mucus Urine TRACE; WBC Urine 15-25 /hpf (0-5)
[2019-06-02 19:57] LABS: Add Urine Culture? Yes
--- NOTE | 2019-06-02 20:11 | CTR_ITS ---
PROCEDURE INFORMATION: Exam: CT Angiography Chest With Contrast Exam date and time: 06/02/2019 8:19 PM Age: 68 years old Clinical indication: Abdominal tenderness; Shortness of breath and other: Elevated d-dimer; Prior surgery; Surgery type: Left shoulder; Additional info: Sob/positive d-dimer TECHNIQUE: Imaging protocol: Computed tomographic angiography of the chest with intravenous contrast. 3D rendering: MIP and/or 3D reconstructed images were created by the technologist. Total DLP: 2211.1 mGy-cm Radiation optimization: All CT scans at this facility use at least one of these dose optimization techniques: automated exposure control; mA and/or kV adjustment per patient size (includes targeted exams where dose is matched to clinical indication); or iterative reconstruction. Contrast material: VISI 320; Contrast volume: 95 ml; Contrast route: IV; COMPARISON: CR XR chest 1V portable [id number] 06/02/2019 6:35 PM FINDINGS: Pulmonary arteries: There are multiple filling defects within the pulmonary artery branches of both lungs, right greater than left. Aorta: Unremarkable. No aortic aneurysm. No aortic dissection. Lungs: Mild subpleural atelectasis. Calcified granuloma in the left lower lobe. Pleural space: Unremarkable. No pneumothorax. No pleural effusion. Heart: No evidence for right heart strain. Lymph nodes: Unremarkable. No enlarged lymph nodes. Bones/joints: Old left rib fractures. Mild scoliosis. Soft tissues: Unremarkable. IMPRESSION: 1. Multiple pulmonary emboli within both lungs, right greater than left. PROCEDURE INFORMATION: Exam: CT Abdomen And Pelvis With Contrast Exam date and time: 06/02/2019 8:19 PM Age: 68 years old Clinical indication: Abdominal tenderness; Shortness of breath and other: Elevated d-dimer; Prior surgery; Surgery type: Left shoulder; Additional info: Sob/positive d-dimer TECHNIQUE: Imaging protocol: Computed tomography of the abdomen and pelvis with intravenous contrast. Total DLP: 2211.1 mGy-cm Radiation optimization: All CT scans at this facility use at least one of these dose optimization techniques: automated exposure control; mA and/or kV adjustment per patient size (includes targeted exams where dose is matched to clinical indication); or iterative reconstruction. Contrast material: VISI 320; Contrast volume: 95 ml; Contrast route: IV; COMPARISON: CR XR chest 1V portable [id number] 06/02/2019 6:35 PM FINDINGS: Liver: Normal. No mass. Gallbladder and bile ducts: Normal. No calcified stones. No ductal dilation. Pancreas: Normal. No ductal dilation. Spleen: Normal. No splenomegaly. Adrenals: Normal. No mass. Kidneys and ureters: Multiple bilateral renal cysts, the largest on the right measuring 9.1 cm. Mild left perinephric and periureteral stranding. Focal fluid collection with peripheral enhancement adjacent to the mid left ureter measuring 3.3 x 1.3 x 4.7 cm. No ureteral calculus. Mild left hydronephrosis. Nonobstructing 2-3 mm bilateral renal calculi. Stomach and bowel: Unremarkable. No obstruction. No mucosal thickening. Appendix: No evidence of appendicitis. Intraperitoneal space: Unremarkable. No free air. No significant fluid collection. Vasculature: Unremarkable. No abdominal aortic aneurysm. Lymph nodes: Unremarkable. No enlarged lymph nodes. Bladder: Unremarkable as visualized. Reproductive: Mildly enlarged prostate measuring 5.3 cm with peripheral calcifications and a central 1.5 cm low-density. Bones/joints: Degenerative lumbar spine. No compression fracture. Soft tissues: Unremarkable. CT/CT angio chest w abd pel w con IMPRESSION: 1. Left perinephric stranding and mild left hydronephrosis, without a visible ureteral calculus. This is suspicious for pyelonephritis. 2. 4.7 cm peripherally enhancing fluid collection adjacent to the mid left ureter is suspicious for a small retroperitoneal abscess. 3. Bilateral nonobstructing renal calculi. 4. Bilateral renal cysts. 4. Enlarged prostate with a 1.5 cm hypodense lesion centrally. An underlying neoplasm is not excluded. Radiation Dose CTDIVOL = (mGy): DLP = 2211.1~2211.1 (mGy-cm)
[2019-06-02 20:29] LABS: Lactic Sepsis W/Reflex 1.2 mmol/L (0.5-2.2)
--- NOTE | 2019-06-02 20:31 | ECG_ITS ---
Measurements Intervals [place] Rate: 98 P: 69 CT: 145 QRS: -2 QRSD: 153 T: 38 QT: 372 QTc: 475 SINUS RHYTHM Right bundle branch block Compared to ECG 06/02/2019 18:36:41 Sinus tachycardia no longer present Electronically Signed On 06-03-2019 15:20:04 ATM MECHANIC by Josue Mckeon M.D. [id number]
[2019-06-02 20:39] LABS: Magnesium 1.9 mg/dL (1.7-2.3)
[2019-06-02] MEDS: iodixanol 320 mg/mL 100mL Btl 95 ML IV (20:47)
[2019-06-02 21:20] LABS: Troponin 5 2HR 20.03 ng/mL (0-15)
[2019-06-02 21:21] LABS: Troponin 5 2HR Delta -0.97 ABS# (0-10)
[2019-06-02] MEDS: cefTRIAXone 2,000 MG in sodium chloride 0.9% (plus) 50 ML 100 MG IV (21:24)
[2019-06-02] MEDS: piperacillin-tazobactam 3.375 GM in sodium chloride 0.9% (plus) 50 ML IV (22:04)
[2019-06-02 22:31] LABS: NT Pro B Type Natriuretic Pept 555 pg/mL (0-125)
[2019-06-02] MEDS: heparin 5,000 unit/mL INJ 1 mL IV (22:52)
[2019-06-02] MEDS: sodium chloride 0.9% 1,000 ML 999 ML IV (23:04)
[2019-06-02] MEDS: heparin drip 25,000 UNIT/500 ML PREMIX 31.8 UNIT IV (23:08)
[2019-06-03] VITALS: BP 140/82; PULSE 85; RESP 23; O2SAT 93
[2019-06-03 00:30] VITALS: BP 145/83; PULSE 87; RESP 19; O2SAT 95
--- NOTE | 2019-06-03 00:31 | ECG_ITS ---
Measurements Intervals [place] Rate: 91 P: 71 DE: 145 QRS: 7 QRSD: 158 T: 40 QT: 394 QTc: 487 SINUS RHYTHM RIGHT BUNDLE BRANCH BLOCK [120+ ms QRS DURATION, UPRIGHT V1, 40+ ms S IN I/aVL/V4/V5/V6] Compared to ECG 06/02/2019 18:36:41 Right bundle-branch block now present Sinus tachycardia no longer present Intraventricular conduction delay no longer present Electronically Signed On 06-03-2019 15:22:07 OUTPATIENT INTERVIEWING CLERK by Josue Mckeon M.D. [id number]
[2019-06-03 00:40] LABS: Troponin 5 6HR 17.17 ng/mL (0-15)
[2019-06-03 01:00] VITALS: BP 143/94; PULSE 99; RESP 25; O2SAT 94
[2019-06-03 01:09] LABS: Troponin 5 6HR Delta -3.83 ng/L (0-12)
[2019-06-03 01:30] VITALS: BP 170/92; PULSE 101; RESP 22; O2SAT 91
[2019-06-03 02:27] VITALS: BP 168/87; PULSE 104; RESP 28; TEMP 37.8; O2SAT 94
== END 2019-06-03 02:29 | disposition short-term general hospital (02) ==
PROVIDERS: Family Medicine; Emergency Provider Emergency Medicine; Family Provider Nurse Practitioner Family
DX: N10 Acute pyelonephritis (principal); K68.11 Postprocedural retroperitoneal abscess; I26.99 Other pulmonary embolism without acute cor pulmonale
CPT/HCPCS: 36415; 36600; 71045; 71275; 74177; 80053; 81001; 82805; 83605; 83735; 83880; 84484; 85025; 87040; 87077; 87086; 87186; 87205; 87804; 93005; 93970; 94640; 96365; 96366; 96367; 96368; 96374; 96375; 99284; 99285; A9270; J0131; J0696; J1644; J2543; J3480; J7030; Q9967

== ENCOUNTER → 2019-12-21 14:56 | Outpatient (BNVA) | payer MEDICARE, OTHER, SELFPAY | PROVIDERS: Family Provider Nurse Practitioner Family; Visit Provider Family Medicine | DX: Z11.59 Encounter for screening for other viral diseases (principal) | CPT/HCPCS: 87635 ==

== ENCOUNTER → 2021-01-04 10:51 | Outpatient (BNVA) | payer MEDICARE, OTHER, SELFPAY | PROVIDERS: Family Provider Nurse Practitioner Family; Visit Provider Nurse Practitioner Family | DX: Z20.822 Contact with and (suspected) exposure to COVID-19 (principal) | CPT/HCPCS: 87635 ==

== ENCOUNTER → 2024-08-07 14:19 | Outpatient (BNVA) | payer MEDICARE, OTHER, SELFPAY | PROVIDERS: PCP Family Medicine; Visit Provider Family Medicine | DX: I10 Essential (primary) hypertension (principal); I48.91 Unspecified atrial fibrillation; I87.2 Venous insufficiency (chronic) (peripheral); Z79.01 Long term (current) use of anticoagulants; N40.1 Benign prostatic hyperplasia with lower urinary tract symptoms; N13.8 Other obstructive and reflux uropathy; M1A.9XX0 Chronic gout, unspecified, without tophus (tophi); R79.89 Other specified abnormal findings of blood chemistry | CPT/HCPCS: 80061; 84443; 84550; 85025 ==

== ENCOUNTER → 2024-09-15 11:43 | Outpatient (BNVA) | payer MEDICARE, OTHER, SELFPAY | PROVIDERS: PCP Family Medicine; Visit Provider Family Medicine | DX: I10 Essential (primary) hypertension (principal); I48.0 Paroxysmal atrial fibrillation; I87.2 Venous insufficiency (chronic) (peripheral); R73.01 Impaired fasting glucose; R79.89 Other specified abnormal findings of blood chemistry | CPT/HCPCS: 80048; 83036 ==

== ENCOUNTER 2024-11-26 10:31 | Inpatient (IN) | payer MEDICARE, OTHER, SELFPAY ==
[2024-11-26] VITALS (10 sets, daily range): BP systolic 114–160; BP diastolic 67–92; PULSE 88–104; RESP 16–18; TEMP 36.7; O2SAT 92–97; BMI 38.5
--- OUTSIDE RECORDS SUMMARY | 2024-11-26 10:41 | XMS_ITS ---
Author Name KIMO RECINOS Address [address] [place] [address] Phone Organization [facility] Address [address] [place] [address] Phone Care Team Providers Care Hearing Screener Name Role Phone MD KIMO RECINOS Unavailable [phone] ALLERGIES, ADVERSE REACTIONS AND ALERTS Allergy Name Allergy Date Allergy Status Allergy Severity Allergy Reaction NO KNOWN DRUG ALLERGIES MEDICATIONS RxNorm Brand Name Prescription Ordered Value Order Unit Start Date Date Status Fill Status Indications [id number] Pradaxa 150 mg capsule SIG: Pradaxa 150 mg oral capsule, days, Dispense # Capsule, 0 RefillsDirecti ons: 1 po BID capsule 2017 Current [id number] Matzim LA 240 mg tablet extended release 24 hr SIG: Matzim LA 240 mg oral tablet extended release 24 hr, days, Dispense # Tablet, 0 RefillsDirecti ons: 1 po day tablet extende d release 24 hr 2017 Current [id number] dofetili de 500 mcg capsule SIG: dofetilide 500 mcg oral capsule, days, Dispense # Capsule, 0 RefillsDirecti ons: 1 po BID capsule 2017 Current [id number] allopuri nol 100 mg tablet SIG: allopurinol 100 mg oral tablet, days, Dispense # Tablet, 0 RefillsDirecti ons: 1 po BID tablet 2017 Current [id number] testoste greg cypionat e 200 mg/mL oil SIG: testosterone cypionate 200 mg/mL intramuscular oil, days, Dispense #1 Ampule, 1 RefillsDirecti ons: 1 ml IM once per month 1 oil 2018 Historic Syringe 3cc/21Gx 1-1/2 3 mL 21 gauge x 1 1/2 syringe SIG: Syringe 3cc/55Fw1-7/2 3 mL 21 gauge x 1 1/2 miscellaneous syringe, 30 days, Dispense #4 Syringe, 0 RefillsDirecti ons: use monthly with testosterone 4 syringe 2018 Historic [id number] testoste greg cypionat e 200 mg/mL oil SIG: testosterone cypionate 200 mg/mL intramuscular oil, days, Dispense #1 Ampule, 3 RefillsDirecti ons: 1 ml IM q2 weeks 1 oil 2018 Historic Syringe 3cc/21Gx 1-/2 3 mL 21 gauge x 1 1/2 syringe SIG: Syringe 3cc/90Ge7-9/2 3 mL 21 gauge x 1 1/2 miscellaneous syringe, 30 days, Dispense #4 Syringe, 0 RefillsDirecti ons: use monthly with testosterone 4 syringe 2018 Historic BD Luer-Sarah Syringe 3 mL 21 gauge x 1 1/2 syringe SIG: BD Luer-Sarah Syringe 3 mL 21 gauge x 1 1/2 syringe, Dispense # 4, 0 RefillsDirecti ons: USE SYRINGE MONTHLY WITH TESTOSTERONE 4 syringe 2018 019 Historic probioti cs SIG: probiotics , days, Dispense # -, 0 RefillsDirecti ons: 1 po day 2018 Historic Campbell 3 SIG: Campbell 3 , days, Dispense # -, 0 RefillsDirecti ons: 1 po day 2018 Historic Vitamin D SIG: Vitamin D , days, Dispense # -, 0 RefillsDirecti ons: 1 po day 2018 Current zinc 30mg SIG: zinc 30mg , days, Dispense # -, 0 RefillsDirecti ons: 1 po day 2018 Current [id number] testoste greg cypionat e 200 mg/mL oil SIG: testosterone cypionate 200 mg/mL intramuscular oil, days, Dispense #1 Ampule, 3 RefillsDirecti ons: 1 ml IM q2 weeks 1 oil 2018 Historic BD Luer-Sarah Syringe 3 mL 21 gauge x 1 1/2 syringe SIG: BD Luer-Sarah Syringe 3 mL 21 gauge x 1 1/2 miscellaneous syringe, 28 days, Dispense #4 Not Specified, 0 RefillsDirecti ons: USE SYRINGE MONTHLY WITH TESTOSTERONE 4 syringe 2018ic [id number] testoste greg cypionat e 200 mg/mL oil SIG: testosterone cypionate 200 mg/mL intramuscular oil, days, Dispense #1 Ampule, 3 RefillsDirecti ons: 1 ml IM q2 weeks 1 oil 2018 Historic BD Luer-Sarah Syringe 3 mL 21 gauge x 1 1/2 syringe SIG: BD Luer-Sarah Syringe 3 mL 21 gauge x 1 1/2 syringe, Dispense # 4, 0 RefillsDirecti ons: USE SYRINGE MONTHLY WITH TESTOSTERONE 4 syringe 2018 019 ic [id number] testoste greg cypionat e 200 mg/mL oil SIG: testosterone cypionate 200 mg/mL intramuscular oil, days, Dispense #1 Ampule, 3 RefillsDirecti ons: 1 ml IM q2 weeks 1 oil 2019ic [id number] testoste greg cypionat e 200 mg/mL oil SIG: testosterone cypionate 200 mg/mL intramuscular oil, days, Dispense #10 Milliliter, 3 RefillsDirecti ons: 1 ml IM q2 weeks 10 oil 2019 Historic BD Luer-Sarah Syringe 3 mL 21 gauge x 1 1/2 syringe SIG: BD Luer-Sarah Syringe 3 mL 21 gauge x 1 1/2 miscellaneous syringe, days, Dispense #12 Each, 3 RefillsDirecti ons: USE SYRINGE MONTHLY WITH TESTOSTERONE 12 syringe 2019 Historic BD Luer-Sarah Syringe 3 mL 21 gauge x 1 1/2 syringe SIG: BD Luer-Sarah Syringe 3 mL 21 gauge x 1 1/2 miscellaneous syringe, days, Dispense #12 Each, 3 RefillsDirecti ons: USE SYRINGE MONTHLY WITH TESTOSTERONE 12 syringe 2019ic [id number] testoste greg cypionat e 200 mg/mL oil SIG: testosterone cypionate 200 mg/mL intramuscular oil, days, Dispense #10 Milliliter, 3 RefillsDirecti ons: 1 ml IM q2 weeks 10 oil 2019ic [id number] testoste greg cypionat e 200 mg/mL oil SIG: testosterone cypionate 200 mg/mL intramuscular oil, days, Dispense #2 Milliliter, 3 RefillsDirecti ons: 1 ml IM q2 weeks 2 oil 2019 Historic [id number] testoste greg cypionat e 200 mg/mL oil SIG: testosterone cypionate 200 mg/mL intramuscular oil, days, Dispense #10 Milliliter, 3 RefillsDirecti ons: 1 ml IM q2 weeks 10 oil 2019 Historic [id number] Nature-T hroid 65 mg tablet SIG: Nature-Throid 65 mg oral tablet, days, Dispense #30 Tablet, 3 RefillsDirecti ons: One po qam on an empty stomach (water only) - 30 minutes before coffee or food. 30 tablet 2019 Historic [id number] testoste greg cypionat e 200 mg/mL oil SIG: testosterone cypionate 200 mg/mL intramuscular oil, days, Dispense #10 Milliliter, 3 RefillsDirecti ons: 1 ml IM q2 weeks 10 oil 2019 Historic [id number] Nature-T hroid 65 mg tablet SIG: Nature-Throid 65 mg tablet, Dispense # 30, 2 RefillsDirecti ons: TAKE ONE TABLET BY MOUTH DAILY IN THE MORNING ON AN EMPTY STOMACH (WATER ONLY) 30 BEFORE COFFEE OR FOOD 30 tablet 2019 020 Historic testoste greg cyp, micro (bulk) 100 % powder SIG: testosterone cyp, micro (bulk) 100 % miscellaneous powder, days, Dispense #60 Gram, 3 RefillsDirecti ons: 1 gram to scrotum bid 60 powder 2019 Historic testoste greg cyp, micro (bulk) 100 % powder SIG: testosterone cyp, micro (bulk) 100 % miscellaneous powder, 90 days, Dispense #180 Gram, 1 RefillsDirecti ons: 1 gram to scrotum bid 180 powder 2019 Historic testoste greg cyp, micro (bulk) 100 % powder SIG: testosterone cyp, micro (bulk) 100 % miscellaneous powder, 90 days, Dispense #180 Gram, 1 RefillsDirecti ons: 1 gram to scrotum bid 180 powder 2020 Historic testoste greg (bulk) powder SIG: testosterone (bulk) miscellaneous powder, 90 days, Dispense #180 Gram, 0 RefillsDirecti ons: Apply 1 gram to scrotum bid 180 powder 2021 Historic testoste greg (bulk) powder SIG: testosterone (bulk) miscellaneous powder, 90 days, Dispense #135 Gram, 0 RefillsDirecti ons: Apply 1/2 gram in the a.m., and 1 gram qhs 135 powder 2021 Historic [id number] cycloben zaprine 10 mg tablet SIG: cyclobenzaprin e 10 mg oral tablet, 0 days, Dispense #90 Tablet, 0 RefillsDirecti ons: 1/2 to one tab po tid prn muscle spasm 90 tablet 2021 Historic testoste greg (bulk) powder SIG: testosterone (bulk) miscellaneous powder, 90 days, Dispense #135 Gram, 0 RefillsDirecti ons: Apply 1/2 gram in the a.m., and 1 gram qhs 135 powder 2022 Historic testoste greg (bulk) powder SIG: testosterone (bulk) miscellaneous powder, 90 days, Dispense #135 Gram, 0 RefillsDirecti ons: Apply 1/2 gram in the a.m., and 1 gram qhs 135 powder 2022 Historic testoste greg (bulk) powder SIG: testosterone (bulk) miscellaneous powder, 90 days, Dispense #135 Gram, 0 RefillsDirecti ons: Apply 1/2 gram in the a.m., and 1 gram qhs 135 powder 2022 Historic testoste greg (bulk) powder SIG: testosterone (bulk) miscellaneous powder, 90 days, Dispense #135 Gram, 0 RefillsDirecti ons: Apply 1/2 gram in the a.m., and 1 gram qhs 135 powder 2023 Historic testoste greg (bulk) powder SIG: testosterone (bulk) miscellaneous powder, 90 days, Dispense #45 Gram, 1 Refills, Directions: Apply 1/2 gram in the a.m. 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 Current 08/24/2020 M54.16-Radiculopathy, lumbar region Radiculopathy, lumbar region Current 11/23/2020 E61.8-DEFICIENCY OF OTHER SPECIFIED NUTRIENT ELEMENTS DEFICIENCY OF OTHER SPECIFIED NUTRIENT ELEMENTS Current 05/31/2021 PROCEDURES Procedure Description Date Notes NO PROCEDURES PERFORMED ASSESSMENTS Assessment None PLAN OF TREATMENT Assessment Planned Activity LOINC Planned Ata e None CONSULTATION NOTE Note Author Date None HISTORY AND PHYSICAL NOTE Note Author Date None PROGRESS NOTE Note Author Date None DISCHARGE SUMMARY Note Author Date None CHIEF COMPLAINT AND REASON FOR VISIT FUNCTIONAL STATUS Functional or Cognitive Find ing None MENTAL STATUS Cognitive Finding None ENCOUNTERS Encounter Type Provider Diagnoses Start Date Location Disc harged to None SOCIAL HISTORY Social Status Observation Unknown if ever smoked Sex: Male CARE TEAM INFORMATION Hearing Screener Provider ID Role Location Phone KIMO RECINOS [phone] [address], [place] [address] INSURANCE PROVIDERS Payer Name Policy type / Coverage type Covered constitution party ID Policy [place]PS J5[place] Medicare [id number] SELF HUMA[employer] Private Health Insurance [id number] BESS Zhang
--- OUTSIDE RECORDS SUMMARY | 2024-11-26 10:41 | XMS_ITS | Patient Health Record ---
Author Organization [facility] Address [address] [place] [address] Care Team Providers Care Certified Nurse Operating Room Name Role Phone VIOLETA ARREDONDO Primary Care Provider Reason For Referral No Information Plan Of Treatment No Information Insurance Providers Payer Name Payer Address Payer Phone Subscriber Number Group Number Insured Name Patient Relationship to Insured Coverage Start Date Coverage End Date [place]C [place]P [address] [place] [address] [id number] Sanket Haji Self - patient is the insured
--- OUTSIDE RECORDS SUMMARY | 2024-11-26 10:41 | XMS_ITS | Clinical Summary ---
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 Active dabigatran etexilate (PRADAXA) 150 mg Capsule Take 150 mg by mouth 2 times daily. Active allopurinol (ZYLOPRIM) 150 mg Tablet Take by mouth 2 times daily after meals. Active testosterone cypionate (DEPO-TESTOSTE KARLI) 200 mg/mL Oil Inject 200 mg by intramuscular injection every 2 weeks. Active cinnamon bark (CINNAMON ORAL) Take by mouth. Activ e TURMERIC ORAL Take by mouth. A ctive omega-3 fatty acids (FISH OIL ORAL) Take by mouth. Activ e doxycycline hyclate (VIBRAMYCIN) 100 mg capsule TK 1 C PO BID FOR 14 DAYS 0 Active tamsulosin (FLOMAX) 0.4 mg capsule TAKE 1 CAPSULE BY MOUTH ONCE DAILY 0 Active diltiaZEM (CARDIZEM CD) 240 mg Controlled Delivery 24 hour capsule 0 Active allopurinoL (ZYLOPRIM) 100 mg tablet 0 Active Active Problems Problem Noted Date Diagnosed Date Probable sepsis 06/03/2019 Acute pulmonary embolism without acute cor pulmo nale 06/03/2019 Possible perinephric abscess 06/03/2019 Paroxysmal atrial fibrillation 06/03/2019 Family History Medical History Relation Name Comments Colon Cancer Father Colon Cancer Mother Diabetes Mother Relation Name Status Comments Father Mother Social History Tobacco Use Types Packs/Day Years Used Date Smoking Tobacco: Never Smokeless Tobacco: Never Alcohol Use Standard Drinks/Week Comments Never 0 (1 standard drink = 0.6 oz pur e alcohol) Sex and Gender Information Value Date Recorded Sex Assigned at Not on file Legal Sex 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 Gender Identity Not on file Sexual Orientation Not on file Last Filed Vital Signs Vital Sign Reading Time Taken Comments Blood Pressure 128/84 06/07/2019 8:35 AM VOCATIONAL REHABILITATION TECHNICIAN Pulse 76 06/07/2019 8:35 AM VOCATIONAL REHABILITATION TECHNICIAN Temperature 36.4 C (97.6 F) 06/07/2019 8:35 AM VOCATIONAL REHABILITATION TECHNICIAN Respiratory Rate 16 06/07/2019 4:41 AM VOCATIONAL REHABILITATION TECHNICIAN Oxygen Saturation 94% 06/07/2019 8:35 AM VOCATIONAL REHABILITATION TECHNICIAN Inhaled Oxygen Concentration - - Weight 117.3 kg (258 lb 8 oz) 06/07/2019 4:41 AM VOCATIONAL REHABILITATION TECHNICIAN Height 167.6 cm (5' 6 ) 06/05/2019 6:34 PM VOCATIONAL REHABILITATION TECHNICIAN Body Mass Index 41.72 06/05/2019 6:34 PM VOCATIONAL REHABILITATION TECHNICIAN Plan of Treatment Health Maintenance Due Date Last Done Comments DTAP/TDAP/TD VACCINES (1 - Tdap) 1969 COLORECTAL SCREENING 11/23/1995 Colorectal Cancer Screening 11/23/1995 FIT-DNA Q 3 years 11/23/1995 FIT/FOBT Q 1 year 11/23/1995 Flex Sig/CT Colonography Q 5 years 11/23/1995 PNEUMOCOCCAL VACCINE 50+ YEARS (1 of 1 - PCV) 11/23/19 ZOSTER VACCINE (1 of 2) 2000 INFLUENZA VACCINE (#1) 2024 RSV VACCINE (60+ or ) (1 - 1-dose 75+ series) 2025 Insurance MEDICARE PART A AND B [employer] MEDICARE SUPPLEMENT [employer] Medicare Part D Advance Directives For more information, please contact: [phone] * Full Code (Latest Code Status on File) Date Activated Date Inactivated Comments 06/03/2019 5:14 AM 06/07/2019 2:49 PM
--- OUTSIDE RECORDS SUMMARY | 2024-11-26 10:41 | XMS_ITS | Clinical Summary ---
Author Organization [employer] [employer] Address [address] 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 0 Active testosterone cypionate (DEPO-TESTOSTE KARLI) 200 mg/mL Oil Inject 200 mg by intramuscular injection every 2 weeks. 0 Active dabigatran etexilate (PRADAXA) 150 mg Capsule Take 150 mg by mouth 2 times daily. 0 Active dofetilide (TIKOSYN) 500 mcg capsule Take 500 mcg by mouth 2 times daily. 0 Active docosahexaenoi c acid/epa (FISH OIL ORAL) Take by mouth. 0 Active cinnamon bark (CINNAMON ORAL) Take by mouth. 0 Active TURMERIC ORAL Take by mouth. 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 Gender Identity Not on file Sexual Orientation Not on file Last Filed Vital Signs Vital Sign Reading Time Taken Comments Blood Pressure 128/84 06/07/2019 8:35 AM GRADUATE TEACHING ASSOCIATE Pulse 76 06/07/2019 8:35 AM GRADUATE TEACHING ASSOCIATE Temperature 36.4 C (97.6 F) 06/07/2019 8:35 AM GRADUATE TEACHING ASSOCIATE Respiratory Rate 16 06/07/2019 4:41 AM GRADUATE TEACHING ASSOCIATE Oxygen Saturation - - Inhaled Oxygen Concentration - - Weight 117.3 kg (258 lb 8 oz) 06/07/2019 4:41 AM GRADUATE TEACHING ASSOCIATE Height 167.6 cm (5' 6 ) 06/05/2019 6:34 PM GRADUATE TEACHING ASSOCIATE Body Mass Index 41.72 06/05/2019 6:34 PM GRADUATE TEACHING ASSOCIATE Plan of Treatment Health Maintenance Due Date [...] (1 - 1-dose 75+ series) 2025 Insurance * Guarantor: JOSE LARSEN Account Type Relation to Patient Date of Phone Billing Address Personal/Family [address] [place] [address] [employer] Medicare Part D
--- OUTSIDE RECORDS SUMMARY | 2024-11-26 10:41 | XMS_ITS | Encounter Summary ---
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 Name Role Phone Unavailable Primary Care Provider Unavailabl e Reason for Referral * CT Scan (Routine) - Closed Specialty Diagnoses / Procedures Referred By Contac t Referred To Contact Radiology Diagnoses Abscess of prostate Renal and perinephric abscess Procedures CT ABDOMEN PELVIS W CONTRAST Ana Teran MD [address] [place] [address] Phone: tel: fax: [facility] [address] [facility] [address] [address] [address] [place] [address] Phone: tel: fax: Referral ID Status Reason Start Date Expiration Date Visits Requested Visits Authorized [id number] Closed Interventional Scheduling (SGF) 06/10/2019 07/10/2020 1 1 CLINIC MANAGER Encounter Details Date Type Department Care Team (Latest Contact Info) Description 06/10/2019 Ancillary Orders [facility] Pre-Registration [place] CALL TO MAKE APPOINTMENT ONLY [address] [place] [address] Ana Teran MD [address] [place] [address] Abscess of prostate; Renal and perinephric abscess Social History Tobacco Use Types Packs/Day Years Used Date Smoking Tobacco: Never Smokeless Tobacco: Never Alcohol Use Standard Drinks/Week Comments Never 0 (1 standard drink = 0.6 oz pur e alcohol) Sex and Gender Information Value Date Recorded Sex Assigned at Not on file Legal Sex Male 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 Exam: CT ABDOMEN PELVIS W CONTRAST Date/Time of Exam: 06/16/2019 12:15 PM Reason For Exam: See Diagnosis. Diagnosis: Abscess of prostate; Renal and perinephric abscess. Technique: Axial tomograms obtained through the abdomen and pelvis with Isovue 300 intravenous contrast, 125 mL. Oral contrast given. Findings: Comparison to CT study 06/04/2019. Imaged lung bases with trace pleural-parenchymal scarring within left lower hemithorax with old calcified granulomatous residuals. Liver and spleen unremarkable. Gallbladder unremarkable. Pancreas and both adrenals unremarkable. Subjective appearance of mildly swollen kidneys as similarly demonstrated on prior study, left greater than right with trace bilateral perinephric strandy, left greater than right. Redemonstration of multiple small cortical cysts throughout both kidneys with trace bilateral nephrolithiasis. Similar pattern of low-grade distention of left upper urinary tract without hydroureter. Significantly increased size of a complex rounded low-attenuation lesion measuring up to 3.9 cm in greatest diameter, previously 1.6 cm, within posterior cortex with partially exophytic component inferior left kidney suspicious for renal cyst complicated with infection/renal abscess. No ascites. No free air. Bladder unremarkable. Enlarged prostate gland. Stable nonspecific small rounded low-attenuation lesion centrally within prostate. Scattered colonic diverticuli without active infiltrate change. Abundant amount retained stool. Appendix unremarkable. Top normal sized lymph nodes within both groin regions. No aneurysm of abdominal aorta. Moderate grade degenerative change of imaged spine. IMPRESSION: Complex appearing cystic lesion posteriorly of inferior left kidney as detailed above suspect for enlarging cyst complicated with infection/renal abscess. Subtle findings suspect for residual bilateral pyelonephritis. Stable nonspecific small rounded low-attenuation lesion centrally within prostate of which prostate abscess cannot be excluded. Narrative Procedure Note Ricardo Urias MD - 06/16/2019 IMPRESSION: Please see below. Exam: CT ABDOMEN PELVIS W CONTRAST Date/Time of Exam: 06/16/2019 12:15 PM Reason For Exam: See Diagnosis. Diagnosis: Abscess of prostate; Renal and perinephric abscess. Technique: Axial tomograms obtained through the abdomen and pelvis with Isovue 300 intravenous contrast, 125 mL. Oral contrast given. Findings: Comparison to CT study 06/04/2019. Imaged lung bases with trace pleural-parenchymal scarring within left lower hemithorax with old calcified granulomatous residuals. Liver and spleen unremarkable. Gallbladder unremarkable. Pancreas and both adrenals unremarkable. Subjective appearance of mildly swollen kidneys as similarly demonstrated on prior study, left greater than right with trace bilateral perinephric strandy, left greater than right. Redemonstration of multiple small cortical cysts throughout both kidneys with trace bilateral nephrolithiasis. Similar pattern of low-grade distention of left upper urinary tract without hydroureter. Significantly increased size of a complex rounded low-attenuation lesion measuring up to 3.9 cm in greatest diameter, previously 1.6 cm, within posterior cortex with partially exophytic component inferior left kidney suspicious for renal cyst complicated with infection/renal abscess. No ascites. No free air. Bladder unremarkable. Enlarged prostate gland. Stable nonspecific small rounded low-attenuation lesion centrally within prostate. Scattered colonic diverticuli without active infiltrate change. Abundant amount retained stool. Appendix unremarkable. Top normal sized lymph nodes within both groin regions. No aneurysm of abdominal aorta. Moderate grade degenerative change of imaged spine. IMPRESSION: Complex appearing cystic lesion posteriorly of inferior left kidney as detailed above suspect for enlarging cyst complicated with infection/renal abscess. Subtle findings suspect for residual bilateral pyelonephritis. Stable nonspecific small rounded low-attenuation lesion centrally within prostate of which prostate abscess cannot be excluded. us Ana Teran MD CT ORDERABLES Final Resul t documented in this encounter Visit Diagnoses Diagnosis Abscess of prostate Renal and perinephric abscess Abscess of prostate Renal and perinephric abscess documented in this encounter
--- NOTE | 2024-11-26 12:16 | W.ED.ABDPA2 ---
HPI - Abdominal Pain General: Chief Complaint: Abdominal Pain Stated Complaint: Dr Jaimes wants Blood work CT Time Seen by Provider: 11/26/24 12:12 History of Present Illness: 74-year-old man with a history of obesity, hypertension, atrial fibrillation on Tikosyn and chronic anticoagulation on Xarelto and a history of kidney stones who presents emergency room with left flank pain. He has had chills. No nausea or vomiting. No dysuria. He says he does not think this feels like his normal kidney stones. He thinks he has some sort of infection. He says he did not sleep all night last night. Related Data Home Medications ?Medication ?Instructions ?Recorded ?Confirmed dofetilide 125 mcg capsule 500 mcg PO BID 08/07/24 09/15/24 (Tikosyn) finasteride 5 mg tablet 5 mg PO DAILY 08/07/24 09/15/24 potassium citrate 10 mEq (1,080 10 meq PO TID 08/07/24 09/15/24 mg) tablet,extended release tamsulosin 0.4 mg capsule 0.4 mg PO DAILY 08/07/24 09/15/24 testosterone cream transdermal DAILY 08/07/24 09/15/24 Previous Rx's ?Medication ?Instructions ?Recorded baclofen 10 mg tablet 10 mg PO TID PRN muscle spasm #60 08/07/24 tabs semaglutide (weight loss) 0.25 0.25 mg (0.5 mL) SUBCUT Q7D #2 mL 08/07/24 mg/0.5 mL subcutaneous pen injector (Wegovy) losartan 100 mg tablet 100 mg PO DAILY #90 tabs 08/17/24 diltiazem HCl 240 mg 240 mg PO DAILY #90 tabs 08/25/24 tablet,extended release 24 hr allopurinol 100 mg tablet 100 mg PO BID #180 tabs 09/15/24 spironolactone 25 mg tablet 25 mg PO DAILY #90 tabs 09/16/24 dabigatran etexilate 150 mg 150 mg PO BID #200 caps 10/14/24 capsule (Pradaxa) Allergies Allergy/AdvReac Type Severity Reaction Status Date / Time No Known Allergies Allergy Verified 09/15/24 07:14 Review of Systems Narrative: Constitutional symptoms: Negative except as documented in HPI. Skin symptoms: Negative except as documented in HPI. Eye symptoms: Negative except as documented in HPI. ENMT symptoms: Negative except as documented in HPI. Respiratory symptoms: Negative except as documented in HPI. Cardiovascular symptoms: Negative except as documented in HPI. Gastrointestinal symptoms: Negative except as documented in HPI. Genitourinary symptoms: Negative except as documented in HPI. Musculoskeletal symptoms: Negative except as documented in HPI. Neurologic symptoms: Negative except as documented in HPI. Psychiatric symptoms: Negative except as documented in HPI. Endocrine symptoms: Negative except as documented in HPI. PFSH ED PFSH: Medical History (Updated 11/26/24 @ 15:18 by Angelita Romano MD) Prediabetes Fasting hyperglycemia Family hx of colon cancer both parents Obesity, morbid, BMI 40.0-49.9 Chronic venous insufficiency of lower extremity bilateral; L > R Low testosterone in male DR. Mc Coleman manages BPH with urinary obstruction on finasteride, tamsulosin; sees Dr. Hubert Alarcon urology Gout, chronic, without tophus Low back pain with sciatica Hx of pulmonary embolus When he was off of pradaxa prolonged and was inactive after a surgical procedure Hx of deep venous thrombosis Chronic anticoagulation Nephrolithiasis Afib Hypertension Sleep apnea cpap Surgical History Hx of bilateral cataract extraction Hx of colonoscopy 3.1.21 at [facility]; copy scanned; pandiverticulosis and hemorrhoids only; S/P ablation of atrial fibrillation X2 H/O shoulder surgery left History of parathyroid surgery one gland removed; Dr. Pereira in [place] H/O lithotripsy History of right hip replacement Family History Father Colon cancer Mother Colon cancer Diabetes mellitus, type 2 Cancer Kidney disease, chronic, end stage on dialysis Brother Diabetes mellitus, type 2 Sister Diabetes mellitus, type 2 Social History Smoking and tobacco/nicotine status: never used tobacco/nicotine Alcohol intake: current Alcohol intake frequency: few times a week Alcohol type: wine Substance/Drug Use: never Household members: spouse Marital status: Number of children: 3 Highest education level completed: Bachelor's Degree Current occupational status: retired 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 Skin: Warm, dry. Head: Normocephalic, atraumatic. Neck: Supple, trachea midline. Eye: Extraocular movements are intact. Ears, nose, mouth and throat: mucosa moist. Cardiovascular: Regular, Normal peripheral perfusion. Respiratory: Lungs are clear to auscultation, respirations are non-labored, breath sounds are equal, Symmetrical chest wall expansion. Gastrointestinal: Soft, Nontender, Non distended Musculoskeletal: Normal ROM, no deformity. Neurological: Alert and oriented, No focal neurological deficit observed. Psychiatric: Cooperative, appropriate mood & affect. Course Vital Signs: Vital signs: Vital Signs Temperature 98.0 F 11/26/24 10:45 Pulse Rate 90 11/26/24 14:00 Respiratory Rate 16 11/26/24 14:00 Blood Pressure 141/67 11/26/24 14:00 Pulse Oximetry 92 11/26/24 14:00 Oxygen Delivery Me thod Room Air 11/26/24 14:00 MDM - Abdominal Pain Medical Decision Making Medical decision making: Differential diagnosis including but not limited to and based on the above HPI, review of systems and physical exam: In this patient with flank pain would have concern for: Ureterolithiasis. Urinary tract infection. Appendicitis. Cholecystitis. Musculoskeletal / back pain. Pyelonephritis. Orders placed to evaluate differential diagnosis based on the above differential, HPI and physical exam Chest x-ray: No acute process. No infiltrate. No pneumothorax. This was reviewed and interpreted by myself the emergency room physician. I also reviewed the radiology report. EKG: Time 1235. Rate 94. Normal sinus rhythm, No ST-T changes, no ectopy, right bundle branch block, This was reviewed and interpreted by myself the ER physician at 1240 Lab Review: Laboratory results were reviewed and interpreted by myself the emergency room physician. Leukocytosis with a white count of 15. Hemoglobin normal at 16. Mild renal insufficiency with BUN/creatinine of 27 and 1.2. This is at around his baseline. Urinalysis is positive for both blood and white cells with 4+ bacteria. 30+ leukocyte esterase. Nitrate negative. CT of the abdomen abdomen and pelvis without contrast: 1. No renal obstruction. 2. Bilateral renal masses. Some of these are cysts which have been previously described. There are additional masses of variable attenuation which may be complex cysts or solid masses. Cannot characterize further on this examination. 3. High density nodule measuring 8 mm upper pole LEFT kidney. Small calyceal cyst or enlarged diverticulum. Due to the increased density this may contain blood products. 4. Markedly enlarged prostate gland encroaching into the bladder. 5. No ascites. 6. Minimal gallbladder hydrops with no evidence for acute cholecystitis. I reviewed the patient's medical record. Reexamination: Patient's blood pressure responded initially to fluids but is dropped back down is little soft again and he also has been a little bit tachycardic. Given his subjective fevers at home high white count and elevated white count I am going to admit him for pyelonephritis Consultation: I spoke with Dr. Johnston who is on-call for the hospitalist service who agrees to admission. Assessment and plan: Pyelonephritis Urinary tract infection Possible early sepsis -2.5 L normal saline bolus. Fluid volumes based on ideal body weight. -Broad-spectrum antibiotics were administered. Cefepime was given -Sepsis quality measures. -Lactic acid with a reflex was ordered. -Blood cultures were ordered. -I discussed the patient with the hospitalist on-call who is admitting the patient. - Discussed findings and plan with patient. Answered any questions. - All laboratory values were reviewed and interpreted personally by myself, the ER physician - All imaging was reviewed and interpreted personally by myself, the ER physician. - Evaluation and treatment of this problem were appropriate in the emergency setting Lab Data 11/26/24 12:21 11/26/24 12:21 Labs/Radiology: Radiology Impressions Abdomen/Pelvis CT 11/26/24 12:52 IMPRESSION: 1. No renal obstruction. 2. Bilateral renal masses. Some of these are cysts which have been previously described. There are additional masses of variable attenuation which may be complex cysts or solid masses. Cannot characterize further on this examination. 3. High density nodule measuring 8 mm upper pole LEFT kidney. Small calyceal cyst or enlarged diverticulum. Due to the increased density this may contain blood products. 4. Markedly enlarged prostate gland encroaching into the bladder. 5. No ascites. 6. Minimal gallbladder hydrops with no evidence for acute cholecystitis. Laboratory Results WBC 14.96 10^3/uL (3.29-11.43) H 11/26/24 12:21 RBC 4.99 10^6/uL (3.85-5.65) 11/26/24 12:21 Hgb 16.10 g/dL (11.27-16.99) 11/26/24 12:21 Hct 47.7 % (37-53) 11/26/24 12:21 MCV 95.6 fl (82-101) 11/26/24 12:21 MCH 32.3 pg (27-33) 11/26/24 12:21 MCHC 33.8 g/dL (30-55) 11/26/24 12:21 RDW 13.5 % (12.1-15.1) 11/26/24 12:21 Plt Count 217 10^3/cmm (157-399) 11/26/24 12:21 MPV 10.3 fL (7.4-10.4) 11/26/24 12:21 Neut % (Auto) 85.8 % 11/26/24 12:21 Lymph % (Auto) 6.4 % 11/26/24 12:21 [place] % (Auto) 7.0 % 11/26/24 12:21 Eos % (Auto) 0.0 % 11/26/24 12:21 Baso % (Auto) 0.3 % 11/26/24 12:21 Neut # (Auto) 12.85 10^3/uL (1.8-7.7) H 11/26/24 12:21 Lymph # (Auto) 1.0 10^3/uL (0.8-4.8) 11/26/24 12:21 [place] # (Auto) 1.0 10^3/uL (0.2-0.9) H 11/26/24 12:21 Eos # (Auto) 0.0 10^3/uL (0.0-0.8) 11/26/24 12:21 Baso # (Auto) 0.0 10^3/uL (0.0-0.1) 11/26/24 12:21 Nucleated RBC % (auto) 0 % 11/26/24 12:21 Nucleated RBCs # 0.0 /100WBC 11/26/24 12:21 Sodium 138 mmol/L (136-145) 11/26/24 12:21 Potassium 4.4 mmol/L (3.5-5.1) 11/26/24 12:21 Chloride 102 mmol/L (98-107) 11/26/24 12:21 Carbon Dioxide 24 mmol/L (22-29) 11/26/24 12:21 Anion Gap 16.4 (5-19) 11/26/24 12:21 BUN 27 mg/dL (8-23) H 11/26/24 12:21 Creatinine 1.2 mg/dL (0.7-1.2) 11/26/24 12:21 GFR Calculation Not Reportable 11/26/24 12:21 Glucose 135 mg/dL (65-115) H 11/26/24 12:21 Calculated Osmolality 293 mOsm/kg (285-295) 11/26/24 12:21 Lactic Acid 2.2 mmol/L (0.5-2.2) 11/26/24 12:21 Calcium 9.3 mg/dL (8.5-10.5) 11/26/24 12:21 Total Bilirubin 0.9 mg/dL (0.15-1.2) 11/26/24 12:21 AST 17 U/L (0-40) 11/26/24 12:21 ALT 25 U/L (0-41) 11/26/24 12:21 Alkaline Phosphatase 62 U/L (40-130) 11/26/24 12:21 C-Reactive Protein 19.0 mg/L (0.0-4.9) H 11/26/24 12:21 Total Protein 7.5 g/dL (6.6-8.7) 11/26/24 12:21 Albumin 4.0 g/dL (3.5-5.2) 11/26/24 12:21 Globulin 3.5 g/dL (1.3-4.6) 11/26/24 12:21 Lipase 22 U/L (13-60) 11/26/24 12:21 Urine Color Yellow (Yellow) 11/26/24 12:07 Urine Appearance Turbid (CLEAR) A 11/26/24 12:07 Urine pH 6.5 (5-7) 11/26/24 12:07 Ur Specific [place] 1.017 (1.005-1.030) 11/26/24 12:07 Urine Protein 2+ (Negative) A 11/26/24 12:07 Urine Glucose (UA) Negative (Normal) 11/26/24 12:07 Urine Ketones Trace (Negative) 11/26/24 12:07 Urine Blood 3+ (Negative) A 11/26/24 12:07 Urine Nitrate Negative (Negative) 11/26/24 12:07 Urine Bilirubin Negative (Negative) 11/26/24 12:07 Urine Urobilinogen 1.0 mg/dL (Negative) 11/26/24 12:07 Ur Leukocyte Esterase 3+ (Negative) A 11/26/24 12:07 Urine RBC >100 /hpf (0-2) H 11/26/24 12:07 Urine WBC >100 /hpf (0-5) H 11/26/24 12:07 Ur Squamous Epith Cells 0-5 /hpf (0-5) 11/26/24 12:07 Amorphous Sediment Not Reportable 11/26/24 12:07 Urine Bacteria 4+ /hpf (NONE) H 11/26/24 12:07 Hyaline Casts 1.65 /lpf 11/26/24 12:07 All radiology interpretation(s) finalized by discharge Discharge Plan Discharge Patient Disposition: Admitted As Inpatient Clinical Impression: Acute pyelonephritis, Urinary tract infection Condition: Stable Coding Level of Care Code ED Estimator Project Manager for Yinka Abdullahi
--- NOTE | 2024-11-26 12:19 | XRR_ITS ---
PROCEDURE INFORMATION: Exam: XR Chest Exam date and time: 11/26/2024 12:34 PM Age: 74 years old Clinical indication: Pain; Angina pectoris; Additional info: Chest pain TECHNIQUE: Imaging protocol: Radiologic exam of the chest. Views: 1 view. COMPARISON: CT angio chest w abd pel w con 06/02/2019 8:58 PM FINDINGS: Lungs: Unremarkable. No consolidation. Pleural spaces: Unremarkable. No pleural effusion. No pneumothorax. Heart/Mediastinum: Unremarkable. No cardiomegaly. Bones/joints: No acute osseous lesions. There are chronic degenerative changes at each shoulder. XR/XR chest 1V portable [id number] IMPRESSION: No radiographic evidence of acute cardiopulmonary disease.
--- NOTE | 2024-11-26 12:19 | ECG_ITS ---
[facility] Date: 2024-[facility]26 Pat Name: Sanket Haji Department: Room: 250 Gender: Male Polish Maker: : [id number] Requested By: Angelita Vidal Order Number: [id number] Younger MD: Arun Lloyd M.D. Measurements Intervals Asher Rate: 94 P: 83 SC: 158 QRS: -12 QRSD: 158 T: 31 QT: 397 QTc: 498 Interpretive Statements SINUS RHYTHM RIGHT BUNDLE BRANCH BLOCK [120+ ms QRS DURATION, UPRIGHT V1, 40+ ms S IN I/aVL/V4/V5/V6] Compared to ECG 06/03/2019 00:58:13 No significant changes Electronically Signed On 11-28-2024 08:45:22 CDT by Arun Lloyd M.D. [email or web address]
[2024-11-26 12:24] LABS: Glucose Urine UA Negative (Normal); Nitrate Urine Negative (Negative); Specific Gravity, Urine 1.017 (1.005-1.030)
[2024-11-26 12:26] LABS: Add Urine Microscopic? YES
[2024-11-26 12:32] LABS: Hematocrit 47.7 % (37-53); Hemoglobin 16.10 g/dL (11.27-16.99); Mean Corpuscular HGB Conc 33.8 g/dL (30-55); Mean Corpuscular Hemoglobin 32.3 pg (27-33); Mean Corpuscular Volume 95.6 fl (82-101); Nucleated Red Blood Cells % 0 %; Platelet Count 217 10^3/cmm (157-399); Red Blood Count 4.99 10^6/uL (3.85-5.65); White Blood Count 14.96 10^3/uL (3.29-11.43)
[2024-11-26 12:49] LABS: Alanine Aminotransferase 25 U/L (0-41); Albumin Level 4.0 g/dL (3.5-5.2); Alkaline Phosphatase 62 U/L (40-130); Anion Gap 16.4 (5-19); Aspartate Amino Transferase 17 U/L (0-40); Blood Urea Nitrogen 27 mg/dL (8-23); Calcium 9.3 mg/dL (8.5-10.5); Carbon Dioxide 24 mmol/L (22-29); Chloride 102 mmol/L (98-107); Creatinine Clr Calc Pharmacy 62.3666; Globulin 3.5 g/dL (1.3-4.6); Glucose 135 mg/dL (65-115); Lipase 22 U/L (13-60); Osmolality Calculated 293 mOsm/kg (285-295); Potassium 4.4 mmol/L (3.5-5.1); Sodium 138 mmol/L (136-145); Total Protein 7.5 g/dL (6.6-8.7)
[2024-11-26 12:50] LABS: Lactic Sepsis W/Reflex 2.2 mmol/L (0.5-2.2)
--- NOTE | 2024-11-26 12:52 | CT_ITS ---
WS: [id number] CT ABDOMEN AND PELVIS NONCONTRAST HISTORY: flank pain, LEFT TECHNIQUE: Imaging performed through the abdomen and pelvis. Coronal and sagittal reformats are submitted. All CT scans at [facility] use at least one of these dose optimization techniques: automated exposure control; mA and/or kV adjustment per patient size (includes targeted exams where dose is matched to clinical indication); or iterative reconstruction. DLP: 1053.13 mGy.cm COMPARISON: 06/02/2019 Lower thorax: Chronic emphysematous changes at the lung bases. Calcified granuloma LEFT lower lobe. Normal size heart. Liver: Normal size liver. No mass or bile duct dilatation. Gallbladder: Mildly distended gallbladder with no stones or pericholecystic fluid. No common bile duct dilatation. Pancreas: Normal size and attenuation. Normal pancreatic duct. No pancreatitis or mass. Spleen: Normal. Adrenal glands: Normal. No mass. Right kidney: Normal size kidney with no obstruction. Obstructing calcifications in the central kidney. There are numerous low- attenuation masses which have been previously described. The largest mass is a cyst measuring 8.6 x 11.5 cm. Variable density within some of these renal masses. Cannot further characterize on noncontrast CT. Left kidney: No obstruction. Increased attenuation in the upper pole calyx. May be an area of hemorrhage or proteinaceous cyst. Additional indeterminate cortical masses. Aorta: Mild atherosclerosis abdominal aorta with no aneurysm. Calcification in the central mesentery is stable. No associated soft tissue mass. No ascites. GI tract: Nondistended stomach. No small bowel obstruction. Normal appendix. Moderate diverticular disease in the descending and sigmoid colon. No evidence for acute diverticulitis. Abdominal wall: Negative. No hernia. Pelvis: Urinary bladder is well distended. Prostate gland is enlarged encroaching into the bladder. Osseous structures: Advanced degenerative changes throughout the lumbar spine. Prior RIGHT hip arthroplasty. CT/CT kidney stone [id number] IMPRESSION: 1. No renal obstruction. 2. Bilateral renal masses. Some of these are cysts which have been previously described. There are additional masses of variable attenuation which may be com plex cysts or solid masses. Cannot characterize further on this examination. 3. High density nodule measuring 8 mm upper pole LEFT kidney. Small calyceal c yst or enlarged diverticulum. Due to the increased density this may contain blo od products. 4. Markedly enlarged prostate gland encroaching into the bladder. 5. No ascites. 6. Minimal gallbladder hydrops with no evidence for acute cholecystitis.
[2024-11-26] MEDS: cefepime 2,000 mg SDV 2000 MG IVP (12:58)
[2024-11-26 13:01] LABS: Reflex Lactate Order REFLEX LACTIC ORDERD
--- NOTE | 2024-11-26 13:14 | PC.NURSE ---
this nurse assumed pt care from DORA Thomas at 1310.
--- NOTE | 2024-11-26 15:13 | PM.HP ---
Providers/Chief Complaint Primary Care Provider: Ana Teran MD Chief Complaint: Dr Jaimes wants Blood work CT History of Present Illness Sanket Haji is a 74 year old male with past medical history of PE, DVT, A-fib, hypertension on chronic anticoagulation with dabigatran, type 2 diabetes mellitus presents to the ER today because of feeling weak, dizzy, dysuria with concerns of decreased urine output and burning micturition since last night. Patient has also been complaining of left-sided renal angle tenderness for the last 2 days. Has been having diarrhea on and off for the last 1 week. Denies any nausea, vomiting, headache, dizziness or difficulty in breathing. Review of Systems General: Reports: 10 or more systems reviewed and unremarkable except in HPI and below Const: Denies: fever(s), chills, body aches, change in appetite, change in weight, malaise, night sweats, diaphoresis, change in sleep pattern, daytime sleepiness or snoring Eyes: Denies: change in vision, blurry vision, photophobia, eye discomfort or eye discharge ENMT: Denies: throat pain, enlarged tonsils, hoarseness, mouth pain, oral sores, dry mouth, tinnitus, nasal congestion or post nasal drip Card: Denies: chest pain, palpitations, irregular heart rhythm, edema, swelling of feet/ankles, lightheadedness, syncope, pre-syncope, dyspnea on exertion, orthopnea, leg pain with exertion or acrocyanosis Resp: Denies: dyspnea, productive cough, non-productive cough, wheezing, stridor, pain on inspiration, change in phlegm color, hemoptysis or chest congestion GI: Denies: abdominal pain, nausea, vomiting, hematemesis, coffee ground emesis, dysphagia, heartburn, diarrhea, constipation, bloating, GI cramping, change in bowel habits, pain on defecation, hematochezia or melena : Denies: flank pain, difficulty urinating, dysuria, urinary frequency, urinary urgency, urinary hesitancy, urinary dribbling, difficulty starting urination, change in urine stream, nocturia or hematuria Musc: Denies: neck pain, back pain, extremity pain, joint pain, joint swelling, joint redness, joint stiffness or limited range of motion Neuro: Denies: headache(s), numbness in extremities, weakness in extremities, sensory changes, lack of coordination, difficulty walking, frequent falls, dizziness, vertigo, confusion, Slurred speech present, difficulty communicating thoughts or seizure-like activity Psych: Denies: anxiety, depression, mood swings, panic attacks, hopelessness or irritability Endo: Denies: polyuria, polydipsia, tired all the time, cold intolerance, excessive sweating, flushing or heat intolerance Stefano/Lymph: Denies: easy bruising or easy bleeding All/Imm: Denies: tongue swelling, facial swelling or acute wheezing Medications/Allergies Home Medications ?Medication ?Instructions ?Recorded ?Confirmed ?Last Taken ?Type baclofen 10 mg tablet 10 mg PO TID PRN muscle spasm #60 08/07/24 09/15/24 Unknown Rx tabs dofetilide 125 mcg capsule 500 mcg PO BID 08/07/24 09/15/24 Unknown History (Tikosyn) finasteride 5 mg tablet 5 mg PO DAILY 08/07/24 09/15/24 Unknown History potassium citrate 10 mEq (1,080 10 meq PO TID 08/07/24 09/15/24 Unknown History mg) tablet,extended release semaglutide (weight loss) 0.25 0.25 mg (0.5 mL) SUBCUT Q7D #2 mL 08/07/24 09/15/24 Unknown Rx mg/0.5 mL subcutaneous pen injector (Wegovy) tamsulosin 0.4 mg capsule 0.4 mg PO DAILY 08/07/24 09/15/24 Unknown History testosterone cream transdermal DAILY 08/07/24 09/15/24 Unknown History losartan 100 mg tablet 100 mg PO DAILY #90 tabs 08/17/24 09/15/24 Unknown Rx diltiazem HCl 240 mg 240 mg PO DAILY #90 tabs 08/25/24 09/15/24 Unknown Rx tablet,extended release 24 hr allopurinol 100 mg tablet 100 mg PO BID #180 tabs 09/15/24 Unknown Rx spironolactone 25 mg tablet 25 mg PO DAILY #90 tabs 09/16/24 Unknown Rx dabigatran etexilate 150 mg 150 mg PO BID #200 caps 10/14/24 Unknown Rx capsule (Pradaxa) Allergies Allergy/AdvReac Type Severity Reaction Status Date / Time No Known Allergies Allergy Verified 09/15/24 07:14 PFSH Acute PFSH: Medical History (Updated 11/26/24 @ 16:53 by Chapo Johnston MD) Acute urinary retention Prediabetes Fasting hyperglycemia Family hx of colon cancer both parents Obesity, morbid, BMI 40.0-49.9 Chronic venous insufficiency of lower extremity bilateral; L > R Low testosterone in male DR. Mc Coleman manages BPH with urinary obstruction on finasteride, tamsulosin; sees Dr. Hubert Alarcon urology Gout, chronic, without tophus Low back pain with sciatica Hx of pulmonary embolus When he was off of pradaxa prolonged and was inactive after a surgical procedure Hx of deep venous thrombosis Chronic anticoagulation Nephrolithiasis Afib Hypertension Sleep apnea cpap Surgical History Hx of bilateral cataract extraction Hx of colonoscopy 3.04.28 at [facility]; copy scanned; pandiverticulosis and hemorrhoids only; S/P ablation of atrial fibrillation X2 H/O shoulder surgery left History of parathyroid surgery one gland removed; Dr. Pereira in [place] H/O lithotripsy History of right hip replacement Family History Father Colon cancer Mother Colon cancer Diabetes mellitus, type 2 Cancer Kidney disease, chronic, end stage on dialysis Brother Diabetes mellitus, type 2 Sister Diabetes mellitus, type 2 Social History Smoking and tobacco/nicotine status: never used tobacco/nicotine Alcohol intake: current Alcohol intake frequency: few times a week Alcohol type: wine Substance/Drug Use: never Household members: spouse Marital status: Number of children: 3 Highest education level completed: Bachelor's Degree Current occupational status: retired 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 [employer] Current gender identity: Male Vitals/I&O/Wt Last Vital Signs Temp 98.0 F 11/26/24 10:45 Pulse 90 11/26/24 14:00 Resp 16 11/26/24 14:00 BP 141/67 11/26/24 14:00 Pulse Ox 92 11/26/24 14:00 O2 Del Method Room Air 11/26/24 14:00 Weight last 48 hrs Weight 108.409 kg Physical Exam Narrative: General: No acute distress, AO x3, morbid obesity HEENT: PERRLA, pupils bilaterally equal and reactive Chest: Normal vesicular breath sounds, no added sounds, equal good air entry bilaterally CVS: S1-S2 regular, no murmurs, no tachycardia, no gallops, no rubs Abdomen: Soft, nontender, no organomegaly, bowel sounds present, left renal tenderness Neuro: No focal deficits, no facial deformity, AO x3, power 5/5 in all limbs Data 11/26/24 12:21 11/26/24 12:21 Other Labs: Radiology Impressions Abdomen/Pelvis CT 11/26/24 12:52 IMPRESSION: 1. No renal obstruction. 2. Bilateral renal masses. Some of these are cysts which have been previously described. There are additional masses of variable attenuation which may be complex cysts or solid masses. Cannot characterize further on this examination. 3. High density nodule measuring 8 mm upper pole LEFT kidney. Small calyceal cyst or enlarged diverticulum. Due to the increased density this may contain blood products. 4. Markedly enlarged prostate gland encroaching into the bladder. 5. No ascites. 6. Minimal gallbladder hydrops with no evidence for acute cholecystitis. Micro: Microbiology 11/26/24 12:23 Blood Culture - Preliminary Blood SPECIMEN COLLECTED 11/26/24 12:21 Blood Culture - Preliminary Blood SPECIMEN COLLECTED A&P Assessment and plan 1. Sepsis: SIRS: Tachycardic, Febrile, Leukocytosis Source: UTI/pyelonephritis End organ damage: Acute infectious encephalopathy Lactic acid within normal limits Patient getting full sepsis bolus of 30 mL/kg body weight of normal saline. After that continue NS at 75 cc/h. Monitor blood pressures. Keep mean artery pressure 65 mmHg. Blood culture, urine culture, monitoring procalcitonin. On review of culture history has history of UTI with Staphylococcus epidermidis. Empirically started on IV vancomycin and ceftriaxone. Vancomycin as per trough levels. De-escalate antibiotics as per culture results. 2. Urinary tract infection: 3. Acute pyelonephritis: 4. Hypertension: Goal blood pressure less than 140/90 mmHg. Patient takes Cardizem and losartan at home. For now hold off on losartan. Continue with Cardizem and divided dose of 60 mg every 6 hours. 5. Afib: Currently rate controlled. Continue with home dose of Cardizem and dofetilide. Continue with home dose of dabigatran. 6. Hx of pulmonary embolus: Continue home dose of dabigatran. Out of bed to chair. Ambulate. Plan: CT abdomen pelvis showing bilateral renal mass cystic in nature. Patient will need to follow-up with urology/nephrology as an outpatient. Full code Carb consistent diet Dabigatran will be sufficient for DVT prophylaxis Protonix for PUD prophylaxis PDMP PDMP Reviewed: Not Reviewed Attestations Medical Necessity Statement*: Admission for more than 2 midnights due to sepsis in setting of pyelonephritis Diagnoses Sepsis A41.9 Urinary tract infection N39.0 Acute pyelonephritis N10 Hypertension I10 Afib I48.91 Hx of pulmonary embolus Z86.711
--- NOTE | 2024-11-26 15:35 | PHA.VACGOAL ---
Vancomycin Goal - Goal Vancomycin Goal:: 15-20 mg/L Vancomycin Indication:: Other (Sepis and UTI) - Therapy Current therapy:: Other Antibiotic (Ceftriaxone) Day of therpy:: Day [0]of [?] . Actual body weight (kg): 239 lb (AdjBW = 81.6kg) Dosing weight (kg): 108 kg - Data Labs: WBC 14.96 10^3/uL (3.29-11.43) H 11/26/24 12:21 RBC 4.99 10^6/uL (3.85-5.65) 11/26/24 12:21 Hgb 16.10 g/dL (11.27-16.99) 11/26/24 12:21 Hct 47.7 % (37-53) 11/26/24 12:21 MCV 95.6 fl (82-101) 11/26/24 12:21 MCH 32.3 pg (27-33) 11/26/24 12:21 MCHC 33.8 g/dL (30-55) 11/26/24 12:21 RDW 13.5 % (12.1-15.1) 11/26/24 12:21 Sodium 138 mmol/L (136-145) 11/26/24 12:21 Potassium 4.4 mmol/L (3.5-5.1) 11/26/24 12:21 Chloride 102 mmol/L (98-107) 11/26/24 12:21 Carbon Dioxide 24 mmol/L (22-29) 11/26/24 12:21 Anion Gap 16.4 (5-19) 11/26/24 12:21 BUN 27 mg/dL (8-23) H 11/26/24 12:21 Creatinine 1.2 mg/dL (0.7-1.2) 11/26/24 12:21 GFR Calculation Not Reportable 11/26/24 12:21 CrCl (using AdjBW) ~62 mL/min Pertinent tests:: Microbiology 11/26/24 12:23 Blood Blood Culture - Preliminary SPECIMEN COLLECTED 11/26/24 12:21 Blood Blood Culture - Preliminary SPECIMEN COLLECTED Last dialysis session:: N/A Drug administration history:: Medications Vancomycin HCl (Vancocin) 1,250 mg in 250 mls @ 166.667 mls/hr IV BID@0500,1700 IMELDA Ceftriaxone Sodium (Ceftriaxone 1,000 Mg Sdv) 1,000 mg IVP DAILY@2100 IMELDA; Protocol Discontinued Medications Cefepime HCl (Cefepime 2,000 Mg Sdv) 2,000 mg IVP ONCE STA; Protocol Last Admin: 11/26/24 12:58 Dose: 2,000 mg Treatment plan:: new consult Regimen:: Vancomycin 1.25gm q12h, no loading dose, ordered to start at 1700 tonight. Follow up:: Due to patient's advanced age, we will check a pre-steady state trough before the 3rd dose (11/27 @ 1600) to monitor for early, supratherapeutic levels followed by a steady state trough (11/28 @ 1600)
[2024-11-26 15:47] LABS: Iron 40 ug/dL (59-158); Total Iron Binding Capacity 249 mcg/dl; Unsaturated Iron Binding 209 ug/dL (112-347)
[2024-11-26 16:04] LABS: Procalcitonin 0.05 ng/mL (0-0.5); Vitamin B12 885 pg/mL (232-1245)
[2024-11-26 17:06] LABS: Lactic Acid level (Lactate) 1.8 mmol/L (0.5-2.2)
[2024-11-26] MEDS: SODIUM CHLORIDE 0.9% 3252.27 ML IV (17:37)
[2024-11-26] MEDS: DOFETILIDE 125 MCG 500 EACH PO (18:09)
[2024-11-26] MEDS: cefTRIAXone 1,000 mg SDV 1000 MG IVP (20:30)
[2024-11-27] VITALS: BP 103/67; PULSE 75; RESP 16; TEMP 36.7; O2SAT 94
[2024-11-27 04:00] VITALS: BP 103/67; PULSE 75; RESP 16; TEMP 36.7; O2SAT 94
[2024-11-27 05:18] LABS: Hematocrit 41.8 % (37-53); Hemoglobin 13.90 g/dL (11.27-16.99); Mean Corpuscular HGB Conc 33.3 g/dL (30-55); Mean Corpuscular Hemoglobin 32.8 pg (27-33); Mean Corpuscular Volume 98.6 fl (82-101); Nucleated Red Blood Cells % 0 %; Platelet Count 176 10^3/cmm (157-399); Red Blood Count 4.24 10^6/uL (3.85-5.65); White Blood Count 11.54 10^3/uL (3.29-11.43)
[2024-11-27 05:37] LABS: Alanine Aminotransferase 23 U/L (0-41); Albumin Level 3.2 g/dL (3.5-5.2); Alkaline Phosphatase 48 U/L (40-130); Anion Gap 17.1 (5-19); Aspartate Amino Transferase 17 U/L (0-40); Blood Urea Nitrogen 24 mg/dL (8-23); Calcium 8.1 mg/dL (8.5-10.5); Carbon Dioxide 20 mmol/L (22-29); Chloride 106 mmol/L (98-107); Creatinine Clr Calc Pharmacy 62.2279; Globulin 2.7 g/dL (1.3-4.6); Glucose 112 mg/dL (65-115); Magnesium 1.8 mg/dL (1.7-2.3); Osmolality Calculated 293 mOsm/kg (285-295); Potassium 4.1 mmol/L (3.5-5.1); Sodium 139 mmol/L (136-145); Total Protein 5.9 g/dL (6.6-8.7)
[2024-11-27 05:43] LABS: Procalcitonin 0.15 ng/mL (0-0.5)
[2024-11-27 07:25] VITALS: BP 110/71; PULSE 79; RESP 18; TEMP 36.7; O2SAT 96
[2024-11-27] MEDS: DOFETILIDE 125 MCG 500 EACH PO (09:00)
--- NOTE | 2024-11-27 10:12 | PM.DCS ---
Discharge Providers Date of Admission: 11/26/24 16:23 Date of Discharge: November 27, 2024 Attending Provider at Admission: Chapo Johnston MD Attending Provider at Discharge: Chapo Johnston MD Primary Care Provider: Ana Teran MD Diagnoses at Discharge Discharge Diagnosis 1. Sepsis: 2. Urinary tract infection: 3. Acute pyelonephritis: 4. Primary hypertension: 5. Paroxysmal atrial fibrillation: 6. Hx of pulmonary embolus: Reason for Visit Reason for Visit: Dr Theodore guillory Blood work CT Hospital Course Hospital Course Sanket Haji is a 74 year old male with past medical history of PE, DVT, A-fib, hypertension on chronic anticoagulation with dabigatran, type 2 diabetes mellitus presents to the ER today because of feeling weak, dizzy, dysuria with concerns of decreased urine output and burning micturition since last night. Patient has also been complaining of left-sided renal angle tenderness for the last 2 days. Has been having diarrhea on and off for the last 1 week. Denies any nausea, vomiting, headache, dizziness or difficulty in breathing. Patient was admitted here for further evaluation and management of sepsis in setting of UTI. Started on broad-spectrum antibiotics and IV fluids. He responded well to the treatment and improved quicker than expected. Follow-up blood cultures remain negative and urine culture growing gram-negative rods. He is being discharged on oral linezolid and Levaquin as per old culture history. He has been discharge hemodynamically stable condition with advised to hold his losartan for now. He is to check his blood pressure daily at home and maintain blood pressure diary and follow with the primary care provider within next 2 weeks for further adjustment of antihypertensive as needed. Physical Exam Narrative: General: No acute distress, AO x3, morbid obesity HEENT: PERRLA, pupils bilaterally equal and reactive Chest: Normal vesicular breath sounds, no added sounds, equal good air entry bilaterally CVS: S1-S2 regular, no murmurs, no tachycardia, no gallops, no rubs Abdomen: Soft, nontender, no organomegaly, bowel sounds present, left renal tenderness Neuro: No focal deficits, no facial deformity, AO x3, power 5/5 in all limbs Discharge Data Studies Completed and Pending Completed Studies During Hospitalization Category Date Time Status CT abdomen renal stone [CT kidney stone 42004] Stat Cat Scan 11/26/24 12:52 Completed XR chest 1V portable [id number] Stat Exams 11/26/24 12:19 Completed Pending at discharge Category Date Time Status Blood Culture Stat Lab 11/26/24 12:23 Results Complete Blood Count w/Auto AM LABS Lab 11/28/24 04:00 Ordered Complete Blood Count w/Auto AM LABS Lab 11/29/24 04:00 Ordered Comprehensive Metabolic Panel AM LABS Lab 11/28/24 04:00 Ordered Comprehensive Metabolic Panel AM LABS Lab 11/29/24 04:00 Ordered Magnesium AM LABS Lab 11/28/24 04:00 Ordered Magnesium AM LABS Lab 11/29/24 04:00 Ordered Phosphorus AM LABS Lab 11/28/24 04:00 Ordered Phosphorus AM LABS Lab 11/29/24 04:00 Ordered Urine Culture Stat Lab 11/26/24 12:07 Results Vancomycin Trough Timed Lab 11/27/24 16:00 Ordered Vancomycin Trough Timed Lab 11/28/24 16:00 Ordered Radiology Impressions Chest X-Ray 11/26/24 12:19 IMPRESSION: No radiographic evidence of acute cardiopulmonary disease. Abdomen/Pelvis CT 11/26/24 12:52 IMPRESSION: 1. No renal obstruction. 2. Bilateral renal masses. Some of these are cysts which have been previously described. There are additional masses of variable attenuation which may be complex cysts or solid masses. Cannot characterize further on this examination. 3. High density nodule measuring 8 mm upper pole LEFT kidney. Small calyceal cyst or enlarged diverticulum. Due to the increased density this may contain blood products. 4. Markedly enlarged prostate gland encroaching into the bladder. 5. No ascites. 6. Minimal gallbladder hydrops with no evidence for acute cholecystitis. Microbiology 11/26/24 12:23 Blood Blood Culture - Preliminary NEGATIVE TO DATE 11/26/24 12:21 Blood Blood Culture - Preliminary NEGATIVE TO DATE 11/26/24 12:07 Urine,Clean Catch Urine Culture - Preliminary Gram Negative Rods Laboratory Results WBC 11.54 10^3/uL (3.29-11.43) H 11/27/24 04:09 RBC 4.24 10^6/uL (3.85-5.65) 11/27/24 04:09 Hgb 13.90 g/dL (11.27-16.99) 11/27/24 04:09 Hct 41.8 % (37-53) 11/27/24 04:09 MCV 98.6 fl (82-101) 11/27/24 04:09 MCH 32.8 pg (27-33) 11/27/24 04:09 MCHC 33.3 g/dL (30-55) 11/27/24 04:09 RDW 13.8 % (12.1-15.1) 11/27/24 04:09 Plt Count 176 10^3/cmm (157-399) 11/27/24 04:09 MPV 11.0 fL (7.4-10.4) H 11/27/24 04:09 Neut % (Auto) 76.8 % 11/27/24 04:09 Lymph % (Auto) 13.1 % 11/27/24 04:09 [place] % (Auto) 8.4 % 11/27/24 04:09 Eos % (Auto) 0.6 % 11/27/24 04:09 Baso % (Auto) 0.5 % 11/27/24 04:09 Neut # (Auto) 8.86 10^3/uL (1.8-7.7) H 11/27/24 04:09 Lymph # (Auto) 1.5 10^3/uL (0.8-4.8) 11/27/24 04:09 [place] # (Auto) 1.0 10^3/uL (0.2-0.9) H 11/27/24 04:09 Eos # (Auto) 0.1 10^3/uL (0.0-0.8) 11/27/24 04:09 Baso # (Auto) 0.1 10^3/uL (0.0-0.1) 11/27/24 04:09 Nucleated RBC % (auto) 0 % 11/27/24 04:09 Nucleated RBCs # 0.0 /100WBC 11/27/24 04:09 Sodium 139 mmol/L (136-145) 11/27/24 04:09 Potassium 4.1 mmol/L (3.5-5.1) 11/27/24 04:09 Chloride 106 mmol/L (98-107) 11/27/24 04:09 Carbon Dioxide 20 mmol/L (22-29) L 11/27/24 04:09 Anion Gap 17.1 (5-19) 11/27/24 04:09 BUN 24 mg/dL (8-23) H 11/27/24 04:09 Creatinine 1.2 mg/dL (0.7-1.2) 11/27/24 04:09 GFR Calculation Not Reportable 11/27/24 04:09 Glucose 112 mg/dL (65-115) 11/27/24 04:09 Calculated Osmolality 293 mOsm/kg (285-295) 11/27/24 04:09 Lactic Acid 2.2 mmol/L (0.5-2.2) 11/26/24 12:21 Lactic Acid (Sepsis) 1.8 mmol/L (0.5-2.2) 11/26/24 16:08 Calcium 8.1 mg/dL (8.5-10.5) L 11/27/24 04:09 Phosphorus 2.7 mg/dL (2.5-4.5) 11/27/24 04:09 Magnesium 1.8 mg/dL (1.7-2.3) 11/27/24 04:09 Iron 40 ug/dL (59-158) L 11/26/24 12:21 TIBC 249 mcg/dl 11/26/24 12:21 % Saturation 16.0 % (20-50) L 11/26/24 12:21 Unsat Iron Binding 209 ug/dL (112-347) 11/26/24 12:21 Total Bilirubin 0.9 mg/dL (0.15-1.2) 11/27/24 04:09 AST 17 U/L (0-40) 11/27/24 04:09 ALT 23 U/L (0-41) 11/27/24 04:09 Alkaline Phosphatase 48 U/L (40-130) 11/27/24 04:09 C-Reactive Protein 19.0 mg/L (0.0-4.9) H 11/26/24 12:21 Total Protein 5.9 g/dL (6.6-8.7) L D 11/27/24 04:09 Albumin 3.2 g/dL (3.5-5.2) L 11/27/24 04:09 Globulin 2.7 g/dL (1.3-4.6) 11/27/24 04:09 Lipase 22 U/L (13-60) 11/26/24 12:21 Vitamin B12 885 pg/mL (232-1245) 11/26/24 12:21 Folate 4.7 ng/mL (4.5-32.2) 11/27/24 04:09 Procalcitonin 0.15 ng/mL (0-0.5) 11/27/24 04:09 Urine Color Yellow (Yellow) 11/26/24 12:07 Urine Appearance Turbid (CLEAR) A 11/26/24 12:07 Urine pH 6.5 (5-7) 11/26/24 12:07 Ur Specific [place] 1.017 (1.005-1.030) 11/26/24 12:07 Urine Protein 2+ (Negative) A 11/26/24 12:07 Urine Glucose (UA) Negative (Normal) 11/26/24 12:07 Urine Ketones Trace (Negative) 11/26/24 12:07 Urine Blood 3+ (Negative) A 11/26/24 12:07 Urine Nitrate Negative (Negative) 11/26/24 12:07 Urine Bilirubin Negative (Negative) 11/26/24 12:07 Urine Urobilinogen 1.0 mg/dL (Negative) 11/26/24 12:07 Ur Leukocyte Esterase 3+ (Negative) A 11/26/24 12:07 Urine RBC >100 /hpf (0-2) H 11/26/24 12:07 Urine WBC >100 /hpf (0-5) H 11/26/24 12:07 Ur Squamous Epith Cells 0-5 /hpf (0-5) 11/26/24 12:07 Amorphous Sediment Not Reportable 11/26/24 12:07 Urine Bacteria 4+ /hpf (NONE) H 11/26/24 12:07 Hyaline Casts 1.65 /lpf 11/26/24 12:07 Vitals Last Vital Signs Temp 98.1 F 11/27/24 07:25 Pulse 79 11/27/24 07:25 Resp 18 11/27/24 07:25 BP 110/71 11/27/24 07:25 Pulse Ox 96 11/27/24 07:25 O2 Del Method BiPAP 11/27/24 07:25 Discharge Plan Discharge Patient Disposition: Home Condition: Stable Prescriptions: New linezolid 600 mg tablet 600 mg PO BID Qty: 14 0RF levofloxacin 500 mg tablet 500 mg PO DAILY 7 Days Qty: 7 0RF Continued dofetilide [Tikosyn] 125 mcg capsule 500 mcg PO BID tamsulosin 0.4 mg capsule 0.4 mg PO DAILY potassium citrate 10 mEq (1,080 mg) tablet extended release 10 meq PO TID finasteride 5 mg tablet 5 mg PO DAILY testosterone cream transdermal DAILY Wegovy 0.25 mg/0.5 mL pen injector 0.25 mg SUBCUT Q7D Qty: 2 0RF baclofen 10 mg tablet 10 mg PO TID PRN (Reason: muscle spasm) Qty: 60 0RF diltiazem HCl 240 mg tablet extended release 24 hr 240 mg PO DAILY Qty: 90 1RF allopurinol 100 mg tablet 100 mg PO BID Qty: 180 3RF spironolactone 25 mg tablet 25 mg PO DAILY Qty: 90 1RF Rx Instructions: instead of triamterne hydrochlorothiazide Pradaxa 150 mg capsule 150 mg PO BID Qty: 200 3RF No Action losartan 100 mg tablet 100 mg PO DAILY Qty: 90 1RF Discharge Order = DC NOW: Discharge Order (Routine); Ordered 11/27/24 Ordered By: Chapo Johnston Referrals: Ana Teran MD [Primary Care Provider, [facility]] - 12/17/24 11:15 am Patient Instructions: Levofloxacin (By mouth), Linezolid (By mouth), Urinary Tract Infection in Men (DC), Opioid Safety, Patient Portal & Mark Instructions Activity Restrictions/Additional Instructions: Check your blood pressure daily at home maintain blood pressure diary. For now do not take losartan. Follow-up with the primary care provider within next 2 weeks with a blood pressure diary further adjustment of antihypertensives. Linezolid and Levaquin are the antibiotic which is supposed to take for next 1 week. Follow-up with a urologist at the earliest for evaluation and management of bilateral renal cysts and mass. Discharge Attestations Time Spent in Discharge Care*: greater than 30 min Specific Discharge Activities: educating patient, educating and/or supporting family/caregiver, discussing with pcp/other providers, discussing with case assembler/social workers/dc planners, documenting/other paperwork and evaluating patient/reviewing data Status at Discharge: Cognitive status at discharge: cognitively intact, Behavioral status at discharge: cooperative, Functional status at discharge: independent ambulation, Overall status at discharge: patient is back to baseline Quality Metrics Clinical Quality Measures [ No reported AMI, CVA or VTE this stay] Coding Level of Care Code 51546 Total time (in minutes) for Discharge: 65 Diagnoses Sepsis A41.9 Urinary tract infection N39.0 Acute pyelonephritis N10 Primary hypertension I10 Hypertension type: primary hypertension Paroxysmal atrial fibrillation I48.0 Atrial fibrillation type: paroxysmal Hx of pulmonary embolus Z86.711
--- NOTE | 2024-11-27 10:47 | PC.SOCIAL ---
IMM Updated Updated pt on IMM. No questions voiced. Provided pt a copy. Initialed, dated, & timed a copy & placed in chart.
[2024-11-27 11:42] VITALS: BP 110/71; PULSE 79; RESP 16; TEMP 36.7; O2SAT 98
== END 2024-11-27 11:43 | disposition home or self-care (01) | DRG 871 ==
LOC: ER 15:18 → ER IP 16:23 → MEDSURG 18:17
PROVIDERS: Family Medicine; Admitting Provider Student in an Organized Health Care Education/Training Program; Emergency Provider Emergency Medicine; PCP Family Medicine; Visit Provider Student in an Organized Health Care Education/Training Program
DX: A41.9 Sepsis, unspecified organism (principal); G93.41 Metabolic encephalopathy; N10 Acute pyelonephritis; N13.8 Other obstructive and reflux uropathy; I10 Essential (primary) hypertension; I48.0 Paroxysmal atrial fibrillation; E11.9 Type 2 diabetes mellitus without complications; R19.7 Diarrhea, unspecified; E66.9 Obesity, unspecified; Z68.38 Body mass index [BMI] 38.0-38.9, adult; N40.1 Benign prostatic hyperplasia with lower urinary tract symptoms; G47.30 Sleep apnea, unspecified; Z96.641 Presence of right artificial hip joint; Z79.01 Long term (current) use of anticoagulants; Z79.899 Other long term (current) drug therapy; Z99.89 Dependence on other enabling machines and devices; Z86.711 Personal history of pulmonary embolism; Z86.718 Personal history of other venous thrombosis and embolism; Z87.442 Personal history of urinary calculi
CPT/HCPCS: 36415; 51798; 71045; 74176; 80053; 81001; 82607; 82746; 83540; 83550; 83605; 83690; 83735; 84100; 84145; 85025; 86140; 87040; 87077; 87086; 87186; 93005; 94664; 96365; 96375; 99285; J0692; J0696; J3373; J7030; J9999

== ENCOUNTER 2024-11-29 10:54 | Emergency (ER) | payer MEDICARE, OTHER, SELFPAY ==
--- NOTE | 2024-11-29 10:57 | W.ED.ABDPA2 ---
HPI - Abdominal Pain General: Chief Complaint: Back Pain/Injury Stated Complaint: L side wraping around back pain Time Seen by Provider: 11/29/24 10:55 History of Present Illness: Patient is a male presenting for follow-up after recent hospitalization for severe kidney infection. He was admitted through the ED on and discharged on Saturday. Patient reports he was feeling well at discharge with complete resolution of pain, but now experiencing recurrence of similar pain, though less severe than at initial presentation. He rates current pain at 3/10, down from 5-6/10 at initial presentation. Patient denies fever, chills, or hematuria. He reports feeling unusually cold during hospitalization requiring extra blankets. Patient states he underwent CT scan during hospitalization which revealed bad cysts on both kidneys per Dr. Frederick. Patient also reports having an enlarged prostate which he describes as very large. He is followed by Dr. Gaspar, urologist in [place] at [facility]. Patient was prescribed two antibiotics at discharge and confirms compliance with medication regimen. He began antibiotics Saturday evening around 5 PM, taking one medication twice daily (8 AM and 8 PM) and the other once daily (8 AM). Patient's main concern is recurrence of pain after being pain-free at discharge. Upon review these are Levaquin and Linezolid. Related Data Home Medications ?Medication ?Instructions ?Recorded ?Confirmed dofetilide 125 mcg capsule 500 mcg PO BID 08/07/24 09/15/24 (Tikosyn) finasteride 5 mg tablet 5 mg PO DAILY 08/07/24 09/15/24 potassium citrate 10 mEq (1,080 10 meq PO TID 08/07/24 09/15/24 mg) tablet,extended release tamsulosin 0.4 mg capsule 0.4 mg PO DAILY 08/07/24 09/15/24 testosterone cream transdermal DAILY 08/07/24 09/15/24 Previous Rx's ?Medication ?Instructions ?Recorded baclofen 10 mg tablet 10 mg PO TID PRN muscle spasm #60 08/07/24 tabs semaglutide (weight loss) 0.25 0.25 mg (0.5 mL) SUBCUT Q7D #2 mL 08/07/24 mg/0.5 mL subcutaneous pen injector (Wegovy) losartan 100 mg tablet 100 mg PO DAILY #90 tabs 08/17/24 diltiazem HCl 240 mg 240 mg PO DAILY #90 tabs 08/25/24 tablet,extended release 24 hr allopurinol 100 mg tablet 100 mg PO BID #180 tabs 09/15/24 spironolactone 25 mg tablet 25 mg PO DAILY #90 tabs 09/16/24 dabigatran etexilate 150 mg 150 mg PO BID #200 caps 10/14/24 capsule (Pradaxa) cephalexin 500 mg capsule 500 mg PO Q8H 5 days #15 caps 11/29/24 Allergies Allergy/AdvReac Type Severity Reaction Status Date / Time No Known Allergies Allergy Verified 09/15/24 07:14 Review of Systems General: Reports: 10 or more systems reviewed and unremarkable except in HPI and below PFSH ED PFSH: Medical History (Updated 11/29/24 @ 12:00 by Tomás Alvarez DO) Acute urinary retention Prediabetes Fasting hyperglycemia Family hx of colon cancer both parents Obesity, morbid, BMI 40.0-49.9 Chronic venous insufficiency of lower extremity bilateral; L > R Low testosterone in male DR. Mc Coleman manages BPH with urinary obstruction on finasteride, tamsulosin; sees Dr. 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 Pereira in [place] H/O lithotripsy History of right hip replacement Family History Father Colon cancer Mother Colon cancer Diabetes mellitus, type 2 Cancer Kidney disease, chronic, end stage on dialysis Brother Diabetes mellitus, type 2 Sister Diabetes mellitus, type 2 Social History Smoking and tobacco/nicotine status: never used tobacco/nicotine Alcohol intake: current Alcohol intake frequency: few times a week Alcohol type: wine Substance/Drug Use: never Household members: spouse Marital status: Number of children: 3 Highest education level completed: Bachelor's Degree Current occupational status: retired 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 [employer] Current gender identity: Male Physical Exam Const: COMMON NORMALS: no acute distress, patient oriented x3, alert and well nourished HENMT: COMMON NORMALS: normocephalic HEAD & SCALP: normocephalic Eye: COMMON NORMALS: Equal, round and reactive pupils present, EOMs intact bilaterally and conjunctivae normal CONJUNCTIVA: Yes conjunctivae normal PUPIL: Yes Equal, round and reactive pupils present Neck/C-Spine: COMMON NORMALS: no JVD Resp: COMMON NORMALS: normal respiratory effort, No retractions, No use of accessory muscles, clear to auscultation bilaterally and percussion normal AUSCULTATION: clear to auscultation bilaterally PERCUSSION: percussion normal Cardio: COMMON NORMALS: no JVD GI: COMMON NORMALS: Normal to inspection, nondistended, normoactive bowel sounds present, Soft to palpation, non-tender, No hepatosplenomegaly present, no masses and no bruits PALPATION: Yes Soft to palpation and Yes No hepatosplenomegaly present : COMMON NORMALS: Yes no CVA tenderness BLADDER/KIDNEY EXAM: Yes no CVA tenderness Back/Pelvis: COMMON NORMALS: no CVA tenderness Extremity: COMMON NORMALS: normal to inspection, full ROM, capillary refill normal, no joint enlargement, no clubbing, cyanosis or edema, no calf tenderness and no pedal edema Neuro: COMMON NORMALS: patient oriented x3 SENSORIUM/ORIENTATION: Yes alert Skin: COMMON NORMALS: no rashes or lesions noted, turgor normal and no jaundice GENERAL SKIN EXAM: no rashes or lesions noted and turgor normal Course Vital Signs: Vital signs: Vital Signs Temperature 98 F 11/29/24 11:02 Pulse Rate 78 11/29/24 11:02 Respiratory Rate 18 11/29/24 11:02 Blood Pressure 148/90 11/29/24 11:02 Pulse Oximetry 94 11/29/24 11:02 Oxygen Delivery Me thod Room Air 11/29/24 11:02 MDM - Abdominal Pain Medical Decision Making 1. Kidney Infection (Pyelonephritis) with recurrent pain - Patient recently hospitalized for severe kidney infection, now experiencing recurrent pain - Currently on appropriate dual antibiotic therapy prescribed at discharge - Pain is less severe than at initial presentation (06/15 vs 5-09/15) - Will repeat laboratory studies to assess response to treatment and need for medication adjustment - Explained to patient that fluctuations in symptoms can occur during recovery despite appropriate treatment - Will review hospital records to confirm causative organism and antibiotic sensitivities 2. Bilateral Renal Cysts - Noted on recent CT scan - Will review imaging to assess size and characteristics - May require follow-up imaging to monitor 3. Enlarged Prostate - Patient reports being followed by Dr. Gaspar (urologist) - Will coordinate care with urology as needed - Consider potential contribution to urinary symptoms 4. Plan: - Repeat laboratory studies today including CBC, CMP, and urinalysis with culture if indicated - Continue current antibiotic regimen as prescribed - Return for follow-up in 3-5 days or sooner if symptoms worsen - Contact patient with laboratory results - Consider pain management if symptoms worsen I reviewed the labs which were fairly reassuring. I reviewed the culture results as well previously grown out just skin johnny and now he has E. coli that is largely pansensitive we will de-escalate his antibiotics and have him follow-up with Dr. Olson and his regular doctor he appears nontoxic he is not having any significant pain currently I do not think repeat imaging the patient is necessary. Vital signs are stable he is agreeable to going home with follow-up. Differential Diagnosis Likely abdominal pain, calculus of kidney, diverticulitis and pancreatitis Lab Data Labs/Radiology: Laboratory Results Urine Color Yellow (Yellow) 11/29/24 11:05 Urine Appearance Cloudy (CLEAR) A 11/29/24 11:05 Urine pH 5.0 (5-7) 11/29/24 11:05 Ur Specific [place] 1.018 (1.005-1.030) 11/29/24 11:05 Urine Protein 2+ (Negative) A 11/29/24 11:05 Urine Glucose (UA) Negative (Normal) 11/29/24 11:05 Urine Ketones Negative (Negative) 11/29/24 11:05 Urine Blood 3+ (Negative) A 11/29/24 11:05 Urine Nitrate Negative (Negative) 11/29/24 11:05 Urine Bilirubin Negative (Negative) 11/29/24 11:05 Urine Urobilinogen 1.0 mg/dL (Negative) 11/29/24 11:05 Ur Leukocyte Esterase 1+ (Negative) A 11/29/24 11:05 Urine RBC 51-100 /hpf (0-2) H 11/29/24 11:05 Urine WBC 21-50 /hpf (0-5) H 11/29/24 11:05 Ur Squamous Epith Cells 0-5 /hpf (0-5) 11/29/24 11:05 Amorphous Sediment Not Reportable 11/29/24 11:05 Urine Bacteria None seen /hpf (NONE) 11/29/24 11:05 Hyaline Casts 0-4 /lpf H 11/29/24 11:05 No radiology studies performed this visit Discharge Plan Discharge Patient Disposition: Home Clinical Impression: Acute pyelonephritis, Urinary tract infection Condition: Stable Prescriptions: New cephalexin 500 mg capsule 500 mg PO Q8H 5 Days Qty: 15 0RF Continued dofetilide [Tikosyn] 125 mcg capsule 500 mcg PO BID tamsulosin 0.4 mg capsule 0.4 mg PO DAILY potassium citrate 10 mEq (1,080 mg) tablet extended release 10 meq PO TID finasteride 5 mg tablet 5 mg PO DAILY Wegovy 0.25 mg/0.5 mL pen injector 0.25 mg SUBCUT Q7D Qty: 2 0RF baclofen 10 mg tablet 10 mg PO TID PRN (Reason: muscle spasm) Qty: 60 0RF losartan 100 mg tablet 100 mg PO DAILY Qty: 90 1RF diltiazem HCl 240 mg tablet extended release 24 hr 240 mg PO DAILY Qty: 90 1RF allopurinol 100 mg tablet 100 mg PO BID Qty: 180 3RF spironolactone 25 mg tablet 25 mg PO DAILY Qty: 90 1RF Rx Instructions: instead of triamterne hydrochlorothiazide Pradaxa 150 mg capsule 150 mg PO BID Qty: 200 3RF Discontinued linezolid 600 mg tablet 600 mg PO BID Qty: 14 0RF levofloxacin 500 mg tablet 500 mg PO DAILY 7 Days Qty: 7 0RF No Action testosterone cream transdermal DAILY Discharge Orders: Discharge ED (Routine); Ordered 11/29/24 Ordered By: Tomás Alvarez Referrals: Ana Teran MD [Primary Care Provider, Family Practice] Discharge Diet: Advance as tolerated Discharge Activity: Resume usual activity Patient Instructions: Opioid Safety, Pain Management, Patient Portal & Mark Instructions Activity Restrictions/Additional Instructions: 1. Push fluids. Stop current antibiotics and change to black pickler new Rx. 2. Follow up with PCP in 3-5 days for recheck. 3. Return for high fever, vomiting or intractable pain Print Language: Yoruba Coding Level of Care Code ED Glass Checker for Yinka Abdullahi
--- OUTSIDE RECORDS SUMMARY | 2024-11-29 10:57 | XMS_ITS ---
Author Name KIMO RECINOS Address [address] [place] [address] Phone Organization [employer] Address [address] [place] [address] Phone Care Team Providers Care Electrician Yard Name Role Phone MD KMIO RECINOS Unavailable [phone] ALLERGIES, ADVERSE REACTIONS AND ALERTS Allergy Name Allergy Date Allergy Status Allergy Severity Allergy Reaction NO KNOWN DRUG ALLERGIES MEDICATIONS RxNorm Brand Name Prescription Ordered Value Order Unit Start Date Date Status Fill Status Indications [id number] Pradaxa 150 mg capsule SIG: Pradaxa 150 mg oral capsule, days, Dispense # Capsule, 0 RefillsDirecti ons: 1 po BID capsule 2017 Current [id number] Matzim LA 240 mg tablet extended release 24 hr SIG: Matzim LA 240 mg oral tablet extended release 24 hr, days, Dispense # Tablet, 0 RefillsDirecti ons: 1 po day tablet extende d release 24 hr 2017 Current [id number] dofetili de 500 mcg capsule SIG: dofetilide 500 mcg oral capsule, days, Dispense # Capsule, 0 RefillsDirecti ons: 1 po BID capsule 2017 Current [id number] allopuri nol 100 mg tablet SIG: allopurinol 100 mg oral tablet, days, Dispense # Tablet, 0 RefillsDirecti ons: 1 po BID tablet 2017 Current [id number] testoste greg cypionat e 200 mg/mL oil SIG: testosterone cypionate 200 mg/mL intramuscular oil, days, Dispense #1 Ampule, 1 RefillsDirecti ons: 1 ml IM once per month 1 oil 2018 Historic Syringe 3cc/21Gx 1-1/2 3 mL 21 gauge x 1 1/2 syringe SIG: Syringe 3cc/38Ry8-0/2 3 mL 21 gauge x 1 1/2 miscellaneous syringe, 30 days, Dispense #4 Syringe, 0 RefillsDirecti ons: use monthly with testosterone 4 syringe 2018 Historic [id number] testoste greg cypionat e 200 mg/mL oil SIG: testosterone cypionate 200 mg/mL intramuscular oil, days, Dispense #1 Ampule, 3 RefillsDirecti ons: 1 ml IM q2 weeks 1 oil 2018 Historic Syringe 3cc/21Gx 1-/2 3 mL 21 gauge x 1 1/2 syringe SIG: Syringe 3cc/88Qk3-5/2 3 mL 21 gauge x 1 1/2 [...] RefillsDirecti ons: 1 po day 2018 Historic [place] 3 SIG: [place] 3 , days, Dispense # -, 0 RefillsDirecti ons: 1 po day 2018 Historic Vitamin D SIG: Vitamin D , days, Dispense # -, 0 RefillsDirecti ons: 1 po day 2018 Current zinc 30mg SIG: zinc 30mg , days, Dispense # -, 0 RefillsDirecti ons: 1 po day 2018 Current [id number] testoste greg cypionat e 200 mg/mL oil [...] SYRINGE MONTHLY WITH TESTOSTERONE 4 syringe 2018ic [id number] testoste greg cypionat e 200 mg/mL oil [...] WITH TESTOSTERONE 4 syringe 2018 019 ic [id number] testoste greg cypionat e 200 mg/mL oil SIG: testosterone cypionate 200 mg/mL intramuscular oil, days, Dispense #1 Ampule, 3 RefillsDirecti ons: 1 ml IM q2 weeks 1 oil 2019ic [id number] testoste greg cypionat e 200 mg/mL oil [...] SYRINGE MONTHLY WITH TESTOSTERONE 12 syringe 2019ic [id number] testoste greg cypionat e 200 mg/mL oil SIG: testosterone cypionate 200 mg/mL intramuscular oil, days, Dispense #10 Milliliter, 3 RefillsDirecti ons: 1 ml IM q2 weeks 10 oil 2019ic [id number] testoste greg cypionat e 200 mg/mL oil SIG: testosterone cypionate 200 mg/mL intramuscular oil, days, Dispense #2 Milliliter, 3 RefillsDirecti ons: 1 ml IM q2 weeks 2 oil 2019 Historic [id number] testoste greg cypionat e 200 mg/mL oil SIG: testosterone cypionate 200 mg/mL intramuscular oil, days, Dispense #10 Milliliter, 3 RefillsDirecti ons: 1 ml IM q2 weeks 10 oil 2019 Historic [id number] Nature-T hroid 65 mg tablet SIG: Nature-Throid 65 mg oral tablet, days, Dispense #30 Tablet, 3 RefillsDirecti ons: One po qam on an empty stomach (water only) - 30 minutes before coffee or food. 30 tablet 2019 Historic [id number] testoste greg cypionat e 200 mg/mL oil SIG: testosterone cypionate 200 mg/mL intramuscular oil, days, Dispense #10 Milliliter, 3 RefillsDirecti ons: 1 ml IM q2 weeks 10 oil 2019 Historic [id number] Nature-T hroid 65 mg tablet SIG: Nature-Throid [...] 1 gram qhs 135 powder 2021 Historic [id number] cycloben zaprine 10 mg tablet SIG: cyclobenzaprin [...] ever smoked Sex: Male CARE TEAM INFORMATION Electrician Yard Provider ID Role Location Phone KIMO RECINOS [id number] [address], [place] [address] INSURANCE PROVIDERS Payer Name Policy type / Coverage type Covered republican ID Policy [place]WPS J5) Medicare [id number] SELF HUMANA Private Health Insurance [id number] BESS Zhang
--- OUTSIDE RECORDS SUMMARY | 2024-11-29 10:57 | XMS_ITS | Clinical Summary ---
Author Organization [employer] Address [address] 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 LYRICIST Gender Identity Not on file Sexual Orientation Not on file Last Filed Vital Signs Vital Sign Reading Time Taken Comments Blood Pressure 128/84 06/07/2019 8:35 AM SONG LYRICIST Pulse 76 06/07/2019 8:35 AM SONG LYRICIST Temperature 36.4 C (97.6 F) 06/07/2019 8:35 AM SONG LYRICIST Respiratory Rate 16 06/07/2019 4:41 AM SONG LYRICIST Oxygen Saturation - - Inhaled Oxygen Concentration - - Weight 117.3 kg (258 lb 8 oz) 06/07/2019 4:41 AM SONG LYRICIST Height 167.6 cm (5' 6 ) 06/05/2019 6:34 PM SONG LYRICIST Body Mass Index 41.72 06/05/2019 6:34 PM SONG LYRICIST Plan of Treatment Health Maintenance Due Date [...] Patient Date of Phone Billing Address Personal/Family [address] [place] [address] [employer] Medicare Part D
--- OUTSIDE RECORDS SUMMARY | 2024-11-29 10:57 | XMS_ITS | Encounter Summary ---
Author Organization [facility] Address [address] [place] [address] Care Team Providers Care Nursing Staffing Coordinator Name Role Phone Unavailable Primary Care Provider Unavailabl e Reason for Referral * CT Scan (Routine) - Closed Specialty Diagnoses / Procedures Referred By Contac t Referred To Contact Radiology Diagnoses Abscess of prostate Renal and perinephric abscess Procedures CT ABDOMEN PELVIS W CONTRAST Ana Teran MD [address] [place] [address] Phone: tel: fax: [facility] [address] [facility] [address] [place] [address] Phone: tel: fax: Referral ID Status Reason Start Date Expiration Date Visits Requested Visits Authorized [id number] Closed Interventional Scheduling (SGF) 06/10/2019 07/10/2020 1 1 ADVISOR Encounter Details Date Type Department Care Team (Latest Contact Info) Description 06/10/2019 Ancillary Orders [place] Pre-Registration [place] CALL TO MAKE APPOINTMENT ONLY [address] [place] [address] Ana Teran MD [address] [place] [address] Abscess of prostate; Renal and perinephric abscess Social History Tobacco Use Types Packs/Day Years Used Date Smoking Tobacco: Never Smokeless Tobacco: Never Alcohol Use Standard Drinks/Week Comments Never 0 (1 standard drink = 0.6 oz pur e alcohol) Sex and Gender Information Value Date Recorded Sex Assigned at Not on file Legal Sex Male 6:34 AM HR ADVISOR Gender Identity Not on file Sexual Orientation [...]
--- OUTSIDE RECORDS SUMMARY | 2024-11-29 10:57 | XMS_ITS | Patient Health Record ---
Author Organization Randall Marrufo [facility] [employer] [facility] Address [address] [place] [address] Care Team Providers Care Director Cardiovascular Name Role Phone VIOLETA ARREDONDO Primary Care Provider Reason For Referral No Information Plan Of Treatment No Information Insurance Providers Payer Name Payer Address Payer Phone Subscriber Number Group Number Insured Name Patient Relationship to Insured Coverage Start Date Coverage End Date [place] BL[place] PPO/PPC /FEP [address] [place] [address] [phone] [id number] Sanket Haji Self - patient is the insured
--- OUTSIDE RECORDS SUMMARY | 2024-11-29 10:57 | XMS_ITS | Clinical Summary ---
Author Organization [facility] Address [address] [place] [address] Care Team Providers Care Insulation Board Coater Operator Name Role Phone Unavailable Primary Care [...] on file Legal Sex Male 6:34 AM PERSONALIZED LIVING MANAGER NURSE Gender Identity Not on file Sexual Orientation Not on file Last Filed Vital Signs Vital Sign Reading Time Taken Comments Blood Pressure 128/84 06/07/2019 8:35 AM PERSONALIZED LIVING MANAGER NURSE Pulse 76 06/07/2019 8:35 AM PERSONALIZED LIVING MANAGER NURSE Temperature 36.4 C (97.6 F) 06/07/2019 8:35 AM PERSONALIZED LIVING MANAGER NURSE Respiratory Rate 16 06/07/2019 4:41 AM PERSONALIZED LIVING MANAGER NURSE Oxygen Saturation 94% 06/07/2019 8:35 AM PERSONALIZED LIVING MANAGER NURSE Inhaled Oxygen Concentration - - Weight 117.3 kg (258 lb 8 oz) 06/07/2019 4:41 AM PERSONALIZED LIVING MANAGER NURSE Height 167.6 cm (5' 6 ) 06/05/2019 6:34 PM PERSONALIZED LIVING MANAGER NURSE Body Mass Index 41.72 06/05/2019 6:34 PM PERSONALIZED LIVING MANAGER NURSE Plan of Treatment Health Maintenance Due Date [...] 2025 Insurance MEDICARE PART A AND B [employer] MEDICARE SUPPLEMENT [employer] Medicare Part D Advance Directives For more information, please contact: [phone] * Full Code (Latest Code Status on File) Date Activated Date Inactivated Comments 06/03/2019 5:14 AM 06/07/2019 2:49 PM
[2024-11-29 11:02] VITALS: BP 148/90; PULSE 78; RESP 18; TEMP 36.6; O2SAT 94; BMI 39.4
[2024-11-29 11:42] LABS: Glucose Urine UA Negative (Normal); Nitrate Urine Negative (Negative); Specific Gravity, Urine 1.018 (1.005-1.030)
[2024-11-29 11:46] LABS: Add Urine Microscopic? YES
== END 2024-11-29 12:25 | disposition home or self-care (01) ==
PROVIDERS: Emergency Provider Family Medicine; PCP Family Medicine
DX: N10 Acute pyelonephritis (principal); N39.0 Urinary tract infection, site not specified; I10 Essential (primary) hypertension
CPT/HCPCS: 81001; 87086; 99283

== ENCOUNTER → 2024-12-17 12:57 | Outpatient (BNVA) | payer MEDICARE, OTHER, SELFPAY | PROVIDERS: PCP Family Medicine; Visit Provider Family Medicine | DX: N20.0 Calculus of kidney (principal) | CPT/HCPCS: 87086 ==

== ENCOUNTER 2025-02-18 11:00 | Outpatient (CLI) | payer MEDICARE, OTHER, SELFPAY ==
--- NOTE | 2025-02-18 11:05 | XR_ITS ---
WS: [email or web address] Exam: XR lumbar spine 2-3V* [id number] Date/Time of Exam: 02/18/2025 11:17 AM Reason For Exam: left flank pain DLP: No acute fracture. Grade 1 degenerative anterolisthesis of L4 on L5. Facet arthropathy at all levels but most marked at L4-5 and L5-S1. Spondylosis. Degenerative disc change at all levels. Mild dextroscoliosis. Aortoiliac atherosclerosis. XR/XR lumbar spine 2-3V* [id number] IMPRESSION: 1. Advanced degenerative changes as noted above. Mild dextroscoliosis. 2. No fracture.
--- NOTE | 2025-02-18 11:05 | XR_ITS ---
WS: [id number] Exam: XR thoracic spine 3V* [id number] Date/Time of Exam: 02/18/2025 11:17 AM Reason For Exam: left flank pain--T11 to L 1 distribution No acute fracture or malalignment. Marked spondylosis. Mild upper thoracic dextroscoliosis. There is straightening. Normal paraspinal soft tissue structures. Degenerative disc change at all levels. XR/XR thoracic spine 3V* [id number] IMPRESSION: 1. Moderately advanced degenerative changes and spondylosis. Slight scoliosis. 2. No fracture.
== END 2025-02-18 11:01 | disposition home or self-care (01) ==
LOC: RAD 11:01
PROVIDERS: PCP Family Medicine; Visit Provider Family Medicine
DX: R10.9 Unspecified abdominal pain (principal); M47.814 Spondylosis without myelopathy or radiculopathy, thoracic region; M41.84 Other forms of scoliosis, thoracic region; M47.817 Spondylosis without myelopathy or radiculopathy, lumbosacral region; M51.369 Other intervertebral disc degeneration, lumbar region without mention of lumbar back pain or lower extremity pain; I70.0 Atherosclerosis of aorta
CPT/HCPCS: 72072; 72100

== ENCOUNTER 2025-03-03 10:45 | Outpatient (CLI) | payer MEDICARE, OTHER, SELFPAY ==
--- NOTE | 2025-03-03 11:00 | MR_ITS ---
WS: [id number] MRI THORACIC SPINE WITHOUT CONTRAST TECHNIQUE: Sagittal T1, T2 and STIR imaging. Axial T2 imaging. Noncontrast imaging obtained. CLINICAL INFORMATION: thoracic back pain with radiation around left side COMPARISON: None. FINDINGS: Mild thoracic curve. No acute compression. No high-grade central canal stenosis. Anterior hypertrophic changes. Cord signal is normal. Moderate facet arthropathy in the lower thoracic spine. Shallow RIGHT paracentral protrusion T5-T6. Tiny central protrusions T6-T7 T7-T8 and T8-T9. No significant central canal stenosis. Mild RIGHT T3-4 and mild RIGHT T4-5 bony foraminal narrowing. Mild LEFT T6-T7 bony foraminal narrowing. Mild to moderate LEFT bony foraminal narrowing T8-T9 Mild LEFT T9-T10 Mild RIGHT T10-11. Normal caliber descending thoracic aorta. Adrenal glands are normal. Partially visualized large RIGHT renal cyst. MR/MR thoracic spin wo con* [id number] IMPRESSION: 1. Mild thoracic curve. No acute compression. 2. Cord signal is normal. 3. A few small disc protrusions described above. No significant central canal stenosis. 4. Mild to moderate bony foraminal narrowing described above. 5. Moderate facet arthropathy lower thoracic spine.
--- NOTE | 2025-03-03 11:45 | MRR_ITS ---
PROCEDURE INFORMATION: Exam: MR Lumbar Spine Without Contrast Exam date and time: 03/03/2025 11:31 AM Age: 74 years old Clinical indication: Mid-low back pain; Additional info: Upper back pain with radiation around left TECHNIQUE: Imaging protocol: Magnetic resonance imaging of the lumbar spine without contrast. COMPARISON: CR XR lumbar spine 2-3V* [id number] 02/18/2025 11:22 AM FINDINGS: Bones/joints: There is anterior marginal osteophytosis at L1-L2 and L2-L3. There is T1 and T2 hyperintense signal at L2-L3 compatible with Modic type 2 endplate changes. There are Schmorl's nodes at T11, T12, L1, L2, L3, and L4. Disc spaces: There is disc desiccation at L1-L2, L2-L3, L3-L4, and L5-S1. Disc space heights: There is disc space narrowing at L1-L2, L2-L3, L3-L4, and L5-S1. Spinal cord: Visualized cord, conus medullaris and cauda equina are unremarkable without compression. Conus medullaris is located at the L1-L2: No significant disc bulge or herniation. No severe spinal canal stenosis. No significant neural foraminal narrowing. L2-L3: No significant disc bulge or herniation. No severe spinal canal stenosis. No significant neural foraminal narrowing. L3-L4: No significant disc bulge or herniation. No severe spinal canal stenosis. No significant neural foraminal narrowing. Moderate bilateral facet arthrosis is seen. L4-L5: No significant disc bulge or herniation. No severe spinal canal stenosis. No significant neural foraminal narrowing. Moderate bilateral facet arthrosis is seen. L5-S1: No significant disc bulge or herniation. No severe spinal canal stenosis. No significant neural foraminal narrowing. Moderate bilateral facet arthrosis is seen. Soft tissues: Unremarkable. Retroperitoneum: There is a large right renal T2 hyperintense lesion arising from the lower pole of the right kidney most likely representing a cyst. This was also seen on the CT of 11/26/2024 and is unchanged. Small hyperintense lesion is also seen in the lower pole of the left kidney. MR/MR lumbar spine wo con* [id number] IMPRESSION: 1. Multilevel degenerative spondylosis as above. 2. Schmorl's nodes at T11 through L4. 3. Modic type 2 endplate changes at L2-L3. 4. Disc desiccation and disc space narrowing at L1-L2, L2-L3, L3-L4, and L5-S1. New line 5. No evidence for disc protrusion or spinal canal or neural foraminal stenosis. 6. Bilateral renal cysts. No follow-up is needed. Bosniak I and II: No follow-up is typically required unless the cyst becomes symptomatic. These cysts are considered benign and have a very low risk of malignancy. COMMENTS: Consistent with the [employer]'s Incidental Findings Committee white paper (J Am Mikie Radiol 2018): Any incidental renal lesion less than 1 cm or classified as too small to characterize, or any incidental cystic renal lesion characterized as simple-appearing, is likely benign. No follow-up imaging is recommended for these lesions per consensus recommendations based on imaging criteria.
== END 2025-03-03 10:46 | disposition home or self-care (01) ==
LOC: RAD 10:46
PROVIDERS: PCP Family Medicine; Visit Provider Family Medicine
DX: M47.24 Other spondylosis with radiculopathy, thoracic region (principal); M47.817 Spondylosis without myelopathy or radiculopathy, lumbosacral region; M25.78 Osteophyte, vertebrae; M51.45 Schmorl's nodes, thoracolumbar region; M47.816 Spondylosis without myelopathy or radiculopathy, lumbar region; M47.896 Other spondylosis, lumbar region; N28.1 Cyst of kidney, acquired
CPT/HCPCS: 72146; 72148

== ENCOUNTER → 2025-03-23 14:27 | Outpatient (BNVA) | payer MEDICARE, OTHER, SELFPAY | PROVIDERS: PCP Family Medicine; Visit Provider Family Medicine | DX: Z11.59 Encounter for screening for other viral diseases (principal); Z12.5 Encounter for screening for malignant neoplasm of prostate; R68.82 Decreased libido; R26.89 Other abnormalities of gait and mobility; E55.9 Vitamin D deficiency, unspecified; R79.89 Other specified abnormal findings of blood chemistry; E29.1 Testicular hypofunction | CPT/HCPCS: 84154; 84402; 85025; 86803 ==